=== PATIENT | male | born 1945 | race Caucasian/White ===

== ENCOUNTER 2020-11-28 17:15 | Observation (INO) | payer MEDICARE ==
--- NOTE | 2020-11-28 18:53 | CR ---
PROCEDURE INFORMATION: Exam: XR Chest, 1 View Exam date and time: 11/28/2020 6:44 PM Age: 75 years old Clinical indication: Cough and shortness of breath; Additional info: Chest pain TECHNIQUE: Imaging protocol: XR of the chest Views: 1 view. COMPARISON: CT Chest wo Cont 08/01/2020 9:40 AM FINDINGS: Lungs: The pulmonary vasculature is not engorged. There is mild prominence of the interstitial markings in both lungs similar to the prior CT. Pleural spaces: There are no pleural effusions present. Heart/Mediastinum: The heart is not enlarged. Bones/joints: Unremarkable Soft tissues: The frontal view of the chest is taken in lordotic positioning. IMPRESSION: 1. Chronic prominence of the interstitial markings similar to the prior study. 2. No acute abnormality.
[2020-11-28 18:56] LABS: ANION GAP 14.2 mEq/L (7-13); CHLORIDE,CL 100 mmol/L (98-107); SODIUM,NA 137 mmol/L (136-145)
--- NOTE | 2020-11-28 19:07 | EDM.PDOC ---
<Bella Quiroz - Last Filed: 11/28/20 19:08> ED HPI GENERAL MEDICAL PROBLEM - General Chief Complaint: Respiratory Problem Stated Complaint: FATIGUE,DIFFICULTY BREATHING, PULMINARY ISSUES Time Seen by Provider: 11/28/20 17:45 Source of Information: Reports: Patient, RN, RN Notes Reviewed History Limitations: Reports: No Limitations - History of Present Illness INITIAL COMMENTS - FREE TEXT/NARRATIVE: Patient is a 75-year-old male who presents to ER with complaint of shortness of breath. Began a few days ago. States this morning he had an anxiety attack and states his shortness of breath did increase throughout the day. Patient states he has been doctoring with Dr. Keenan regarding lung issues recently, does have a appointment with pulmonology set up. Patient admits to shortness of breath and cough with production, and increased production lately which is clear. Denies chest pains, fever, chills, nausea, vomiting, diarrhea. Patient states he is not on oxygen at home at baseline. Patient states he has not had Covid, was last tested 5 months ago. Patient states he was vaccinated for the first time 1 week ago. Onset: Today, Gradual - Related Data Allergies Allergy/AdvReac Type Severity Reaction Status Date / Time No Known Allergies Allergy Verified 11/28/20 21:27 Home Meds: Home Meds Aspirin 325 mg PO DAILY 11/28/20 [History] Budesonide/Formoterol Fumarate [Symbicort 80-4.5 MCG] 2 puff INH BID 11/28/20 [History] Fluticasone Propionate 1 spray NASBOTH DAILY 11/28/20 [History] Metoprolol Succinate [Toprol XL 50mg] 50 mg PO DAILY 11/28/20 [History] Montelukast [Singulair] 10 mg PO DAILY 11/28/20 [History] Simvastatin 20 mg PO BEDTIME 11/28/20 [History] metFORMIN HCl [Metformin HCl] 500 mg PO ACBREAKFAST 11/28/20 [History] Past Medical History Cardiovascular History: Reports: High Cholesterol Respiratory History: Reports: SOB Social & Family History - Tobacco Use Tobacco Use Status *Q: Never Tobacco User Second Hand Smoke Exposure: No ED ROS GENERAL - Review of Systems Review Of Systems: Comprehensive ROS is negative, except as noted in HPI. ED EXAM, GENERAL - Physical Exam Exam: See Below Exam Limited By: No Limitations General Appearance: Alert, WD/WN, Mild Distress Eye Exam: Bilateral Eye: EOMI, Normal Inspection Ears: Normal External Exam, Hearing Grossly Normal Nose: Normal Inspection Throat/Mouth: Normal Inspection, Normal Lips, Normal Teeth, Normal Gums, Normal Oropharynx, Normal Voice, No Airway Compromise Head: Atraumatic, Normocephalic Neck: Normal Inspection, Supple, Non-Tender, Full Range of Motion Respiratory/Chest: Decreased Breath Sounds, Crackles (throughout), Rales (throughout) Cardiovascular: Normal Peripheral Pulses, Regular Rate, Rhythm, No Edema, No Gallop, No JVD, No Murmur, No Rub Peripheral Pulses: 2+: Radial (L), Radial (R) GI/Abdominal: Normal Bowel Sounds, Soft, Non-Tender (Male) Exam: Deferred Rectal (Males) Exam: Deferred Back Exam: Normal Inspection, Full Range of Motion, NT Extremities: Normal Inspection, Normal Range of Motion, Non-Tender, Normal Capillary Refill, No Pedal Edema Neurological: Alert, Oriented, CN II-XII Intact, Normal Cognition, Normal Gait, Normal Reflexes, No Motor/Sensory Deficits Psychiatric: Normal Affect, Normal Mood Skin Exam: Warm, Dry, Intact, Normal Color, No Rash Lymphatic: No Adenopathy Course - Radiology Interpretation Free Text/Narrative:: Chest xray: PROCEDURE INFORMATION: Exam: XR Chest, 1 View Exam date and time: 11/28/2020 6:44 PM Age: 75 years old Clinical indication: Cough and shortness of breath; Additional info: Chest pain TECHNIQUE: Imaging protocol: XR of the chest Views: 1 view. COMPARISON: CT Chest wo Cont 08/01/2020 9:40 AM FINDINGS: Lungs: The pulmonary vasculature is not engorged. There is mild prominence of the interstitial markings in both lungs similar to the prior CT. Pleural spaces: There are no pleural effusions present. Heart/Mediastinum: The heart is not enlarged. Bones/joints: Unremarkable Soft tissues: The frontal view of the chest is taken in lordotic positioning. IMPRESSION: 1. Chronic prominence of the interstitial markings similar to the prior study. 2. No acute abnormality. Thank you for allowing us to participate in the care of your patient. Dictated and Authenticated by: Vladimir Liang MD 11/28/2020 6:53 PM Central Time ([place] & [place]) See rad report Departure - Departure Disposition: Refer to Observation Clinical Impression: Hypoxia Diabetes mellitus Qualifiers: Diabetes mellitus type: type 2 Diabetes mellitus manager intermediate insulin use: without usp use - Discharge Information Sepsis Event Note (ED) - Evaluation Sepsis Screening Result: No Definite Risk <Vera Taylor - Last Filed: 11/28/20 23:02> Course - Vital Signs Last Recorded V/S: Last Vital Signs Temp 97.1 F 11/28/20 17:17 Pulse 63 11/28/20 17:17 Resp 32 H 11/28/20 17:17 BP 121/65 11/28/20 17:17 Pulse Ox 76 L 11/28/20 17:17 - Orders/Labs/Meds Orders: Active Orders 24 hr Category Date Time Status CULTURE BLOOD [BC] Stat Lab 11/28/20 18:09 Received UA W/SHIRLEY RFLX IF INDICATED [URIN] Stat Lab 11/28/20 18:20 Ordered Blood Culture x2 Reflex Set [OM.PC] Stat Oth 11/28/20 18:19 Ordered Isolation [COMM] Routine Oth 11/28/20 18:20 Active Medication Orders Acetaminophen (Tylenol) 650 mg PO Q4H PRN PRN Reason: Pain (Mild 1-3)/fever Albuterol/Ipratropium (Duoneb 3.0-0.5 Mg/3 Ml) 3 ml NEB Q4H PRN PRN Reason: shortness of breath/wheezing Aspirin (Aspirin) 324 mg PO DAILY ROSA Docusate Sodium (Colace) 100 mg PO BID PRN PRN Reason: Constipation Fluticasone Propionate (Flonase) 0 gm NASBOTH DAILY ROSA Furosemide (Lasix) 40 mg IVPUSH Q12H ROSA Last Admin: 11/28/20 22:34 Dose: 40 mg Documented by: URIEL Guaifenesin (Robitussin) 100 mg PO Q6H PRN PRN Reason: Cough Last Admin: 11/28/20 22:35 Dose: 100 mg Documented by: URIEL Heparin Sodium (Porcine) (Heparin Sodium) 5,000 units SUBCUT Q12HR ROSA Magnesium Hydroxide (Milk Of Magnesia) 30 ml PO Q12H PRN PRN Reason: Constipation Metformin HCl (Glucophage) 500 mg PO ACBREAKFAST ROSA Methylprednisolone Sodium Succinate (Solu-Medrol) 40 mg IVPUSH Q8H [facility] Last Admin: 11/28/20 22:34 Dose: 40 mg Documented by: URIEL Metoprolol Succinate (Toprol Xl) 50 mg PO DAILY [facility] Mometasone Furoate/Formoterol Fumar (Dulera 100-5 Mcg) 2 puff IH BID [facility] Montelukast Sodium (Singulair) 10 mg PO DAILY [facility] Ondansetron HCl (Zofran) 4 mg IVPUSH Q6H PRN PRN Reason: Nausea/Vomiting Simvastatin (Zocor) 20 mg PO BEDTIME [facility] Last Admin: 11/28/20 22:34 Dose: 20 mg Documented by: URIEL Labs: Laboratory Tests 11/28/20 11/28/20 11/28/20 Range/Units 18:09 18:09 18:09 WBC 9.4 (5.0-10.0) 10^3/uL RBC 4.79 (4.6-6.2) 10^6/uL Hgb 15.9 (14.0-18.0) g/dL Hct 46.2 (40.0-54.0) % MCV 96.5 (80-100) fL MCH 33.2 (27.0-34.0) pg MCHC 34.4 (33.0-35.0) g/dL Plt Count 245 (150-450) 10^3/uL Neut % (Auto) 70.1 (42.2-75.2) % Lymph % (Auto) 17.0 L (20.5-50.1) % [place] % (Auto) 9.8 H (2-8) % Eos % (Auto) 2.7 (1.0-3.0) % Baso % (Auto) 0.4 (0.0-1.0) % PT 10.2 (9.0-12.0) SEC INR 1.1 (0.9-1.2) D-Dimer, Quantitative 455 H (0-400) ng/mL Sodium 137 (136-145) mmol/L Potassium 4.2 (3.5-5.1) mmol/L Chloride 100 (98-107) mmol/L Carbon Dioxide 27 (21-32) mmol/L Anion Gap 14.2 H (7-13) mEq/L BUN 14 (7-18) mg/dL Creatinine 1.02 (0.70-1.30) mg/dL Est Cr Clr Drug Dosing 66.60 mL/min Estimated GFR (MDRD) > 60 BUN/Creatinine Ratio 13.7 (No establ ref range) Glucose 99 (74-99) mg/dL Lactic Acid (0.4-2.0) mmol/L Calcium 8.8 (8.5-10.1) mg/dL Phosphorus (2.6-4.7) mg/dL Magnesium (1.8-2.4) mg/dL Total Bilirubin 1.3 H (0.2-1.0) mg/dL AST 20 (15-37) U/L ALT 28 (16-63) U/L Alkaline Phosphatase 79 (46-116) U/L Troponin I < 0.017 (0.000-0.056) ng/mL C-Reactive Protein 3.1 H (0.0-0.9) mg/dL B-Natriuretic Peptide 77 (0-100) pg/ml Total Protein 7.7 (6.4-8.2) g/dL Albumin 3.1 L (3.4-5.0) g/dL Globulin 4.6 Albumin/Globulin Ratio 0.67 Influenza Type A RNA (NEGATIVE) Influenza Type B RNA (NEGATIVE) SARS-CoV-2 RNA (CONI) (NEGATIVE) 11/28/20 11/28/20 11/28/20 Range/Units 18:09 18:09 18:39 WBC (5.0-10.0) 10^3/uL RBC (4.6-6.2) 10^6/uL Hgb (14.0-18.0) g/dL Hct (40.0-54.0) % MCV (80-100) fL MCH (27.0-34.0) pg MCHC (33.0-35.0) g/dL Plt Count (150-450) 10^3/uL Neut % (Auto) (42.2-75.2) % Lymph % (Auto) (20.5-50.1) % [place] % (Auto) (2-8) % Eos % (Auto) (1.0-3.0) % Baso % (Auto) (0.0-1.0) % PT (9.0-12.0) SEC INR (0.9-1.2) D-Dimer, Quantitative (0-400) ng/mL Sodium (136-145) mmol/L Potassium (3.5-5.1) mmol/L Chloride (98-107) mmol/L Carbon Dioxide (21-32) mmol/L Anion Gap (7-13) mEq/L BUN (7-18) mg/dL Creatinine (0.70-1.30) mg/dL Est Cr Clr Drug Dosing mL/min Estimated GFR (MDRD) BUN/Creatinine Ratio (No establ ref range) Glucose (74-99) mg/dL Lactic Acid 1.0 (0.4-2.0) mmol/L Calcium (8.5-10.1) mg/dL Phosphorus 3.6 (2.6-4.7) mg/dL Magnesium 2.1 (1.8-2.4) mg/dL Total Bilirubin (0.2-1.0) mg/dL AST (15-37) U/L ALT (16-63) U/L Alkaline Phosphatase (46-116) U/L Troponin I (0.000-0.056) ng/mL C-Reactive Protein (0.0-0.9) mg/dL B-Natriuretic Peptide (0-100) pg/ml Total Protein (6.4-8.2) g/dL Albumin (3.4-5.0) g/dL Globulin Albumin/Globulin Ratio Influenza Type A RNA Negative (NEGATIVE) Influenza Type B RNA Negative (NEGATIVE) SARS-CoV-2 RNA (CONI) Negative (NEGATIVE) Meds: Medications Generic Name Dose Route Start Last Admin Trade Name Freq PRN Reason Stop Dose Admin Acetaminophen 650 mg 11/28/20 21:32 Tylenol PO Q4H PRN Pain (Mild 1-3)/fever Albuterol/Ipratropium 3 ml 11/28/20 21:32 Duoneb 3.0-0.5 Mg/3 Ml NEB Q4H PRN shortness of breath/wheezing Aspirin 324 mg 11/29/20 09:00 Aspirin PO DAILY ROSA Docusate Sodium 100 mg 11/28/20 21:32 Colace PO BID PRN Constipation Fluticasone Propionate 0 gm 11/29/20 09:00 Flonase NASBOTH DAILY ROSA Furosemide 40 mg 11/28/20 21:45 11/28/20 22:34 Lasix IVPUSH 40 mg Q12H ROSA Administration Guaifenesin 100 mg 11/28/20 21:57 11/28/20 22:35 Robitussin PO 100 mg Q6H PRN Administration Cough Heparin Sodium (Porcine) 5,000 units 11/29/20 09:00 Heparin Sodium SUBCUT Q12HR ROSA Magnesium Hydroxide 30 ml 11/28/20 21:32 Milk Of Magnesia PO Q12H PRN Constipation Metformin HCl 500 mg 11/29/20 06:00 Glucophage PO ACBREAKFAST ROSA Methylprednisolone Sodium Succinate 40 mg 11/28/20 21:45 11/28/20 22:34 Solu-Medrol IVPUSH 40 mg Q8H RSOA Administration Metoprolol Succinate 50 mg 11/29/20 09:00 Toprol Xl PO DAILY ROSA Mometasone Furoate/Formoterol Fumar 2 puff 11/29/20 09:00 Dulera 100-5 Mcg IH BID ROSA Montelukast Sodium 10 mg 11/29/20 09:00 Singulair PO DAILY ROSA Ondansetron HCl 4 mg 11/28/20 21:32 Zofran IVPUSH Q6H PRN Nausea/Vomiting Simvastatin 20 mg 11/28/20 22:30 11/28/20 22:34 Zocor PO 20 mg BEDTIME ROSA Administration Discontinued Medications Generic Name Dose Route Start Last Admin Trade Name Freq PRN Reason Stop Dose Admin Azithromycin 500 mg/ Sodium 250 mls @ 250 mls/hr 11/28/20 21:45 11/28/20 22:35 Chloride IV 11/28/20 22:44 250 mls/hr BEDTIME ROSA Administration Iopamidol 100 ml 11/28/20 19:31 11/28/20 19:43 [id number] (76%) IVPUSH 11/28/20 19:32 100 ml ONETIME ONE Administration - Re-Assessments/Exams Free Text/Narrative Re-Assessment/Exam: 11/28/20 20:[address] Ott, agree to admit [facility] Departure - Departure Time of Disposition: 20:50 Condition: Fair - Discharge Information *PRESCRIPTION DRUG MONITORING PROGRAM REVIEWED*: No *COPY OF PRESCRIPTION DRUG MONITORING REPORT IN PATIENT JUANY: No Sepsis Event Note (ED) - Focused Exam Vital Signs: Vital Signs Temp Pulse Resp BP Pulse Ox 11/28/20 17:17 97.1 F 63 32 H 121/65 76 L
[2020-11-28 19:20] LABS: CORONAVIRUS COVID-19 NAA NEGATIVE (NEGATIVE)
[2020-11-28] MEDS ORDERED: Iopamidol 755 Mg/ML 100 ML Bottle IVPUSH ONE (19:31)
--- NOTE | 2020-11-28 20:30 | CT ---
PROCEDURE INFORMATION: Exam: CT Chest With Contrast; Diagnostic Exam date and time: 11/28/2020 8:06 PM Age: 75 years old Clinical indication: Other: Pe protocol d-dimer 455; Additional info: Increased SOB, decreased sats TECHNIQUE: Imaging protocol: Diagnostic computed tomography of the chest with contrast. Radiation optimization: All CT scans at this facility use at least one of these dose optimization techniques: automated exposure control; mA and/or kV adjustment per patient size (includes targeted exams where dose is matched to clinical indication); or iterative reconstruction. Contrast material: [id number]; Contrast volume: 84 ml; Contrast route: INTRAVENOUS (IV); COMPARISON: CT Chest wo Cont 08/01/2020 9:40 AM FINDINGS: Lungs: There is moderate bibasilar bronchiectasis. There are multiple peripheral small emphysematous spaces in a patchy distribution. These are more pronounced in the lung bases and are more pronounced than on the prior exam. Pleural spaces: There are no pleural effusions present. Heart: The heart is not enlarged. Mediastinal space: The trachea is normal. Pulmonary arteries: There is no evidence of filling defects within the pulmonary arterial circulation to suggest pulmonary embolism. Aorta: The aorta is normal. Lymph nodes: There are multiple mildly enlarged lymph nodes in the mediastinum. The largest is on the left adjacent to the left main pulmonary artery measuring about 1.6 cm in short axis. There is a large right hilar nodes/mass measuring about 2.6 x 2.0 in transverse and AP diameters. This is larger than the prior study. Bones/joints: Unremarkable for age Soft tissues: The extrathoracic soft tissues are normal. IMPRESSION: 1. No evidence of pulmonary embolism. 2. Enlarged right hilar lymphadenopathy. 3. Mediastinal lymphadenopathy. 4. Bilateral chronic interstitial lung disease.
[2020-11-28] MEDS ORDERED: Docusate Sodium 100 MG Cap PO PRN (21:32)
[2020-11-28] MEDS ORDERED: Acetaminophen 325 MG Tab PO PRN (21:32)
[2020-11-28] MEDS ORDERED: Magnesium Hydroxide 400 MG/5 ML Susp 30 ML Cup PO PRN (21:32)
[2020-11-28] MEDS ORDERED: Ondansetron 4 MG/2 ML SDV IVPUSH PRN (21:32)
[2020-11-28] MEDS ORDERED: Albuterol/Ipratropium 3.0-0.5 MG/3 ML Neb Soln NEB PRN (21:32)
--- NOTE | 2020-11-28 21:42 | PCM.HP ---
H&P History of Present Illness - General Date of Service: 11/28/20 Admit Problem/Dx: Admission Diagnosis/Problem Admission Diagnosis/Problem Hypoxia Source of Information: Patient History Limitations: Reports: No Limitations - History of Present Illness Initial Comments - Free Text/Narative: Desmond this 75-year-old male with past medical history significant for diabetes type 2, hypertension, hyperlipidemia, ? COPD/respiratory airway disease who presented to the ED for evaluation of increasing shortness of breath for the past 2 weeks which has gotten worse over the last 4 days. He reports dyspnea with exertion. He gets short of breath and tired with minimal activity. Patient reports this morning he had an anxiety attack and and made his shortness of breath worse. He denies cough, fever, chills. He denies wheezing. No chest pain. Denies leg swelling. Denies orthopnea, PND. Denies weight gain. He said he had pneumonia about 4 months ago and says that he is notes completely gotten back to his baseline. He has been doctoring with his PCP for his lung issues. He has a pending appointment with pulmonology coming up. Denies recent travel or ill contacts. No abdominal pain, nausea, vomiting. No diarrhea, hematochezia or melena. He received his first Covid vaccine a week ago. He denies tobacco abuse. And does occasional use of alcohol. In the ED vitals unremarkable. CT chest was negative. BNP slightly elevated. He was placed on 4 L of oxygen via nasal cannula. Admission requested for further management. Onset of Symptoms: Reports: Gradual Duration of Symptoms: Reports: Day(s): Location: Reports: Chest Quality: Reports: Ache Severity: Moderate Improves with: Reports: None Worsens with: Reports: None (As per HPI) - Related Data Allergies/Adverse Reactions: Allergies Allergy/AdvReac Type Severity Reaction Status Date / Time No Known Allergies Allergy Verified 11/28/20 21:27 Home Medications: Home Meds Aspirin 325 mg PO DAILY 11/28/20 [History] Budesonide/Formoterol Fumarate [Symbicort 80-4.5 MCG] 2 puff INH BID 11/28/20 [History] Fluticasone Propionate 1 spray NASBOTH DAILY 11/28/20 [History] Metoprolol Succinate [Toprol XL 50mg] 50 mg PO DAILY 11/28/20 [History] Montelukast [Singulair] 10 mg PO DAILY 11/28/20 [History] Simvastatin 20 mg PO BEDTIME 11/28/20 [History] metFORMIN HCl [Metformin HCl] 500 mg PO ACBREAKFAST 11/28/20 [History] Past Medical History Cardiovascular History: Reports: High Cholesterol, Hypertension Respiratory History: Reports: SOB Endocrine/Metabolic History: Reports: Diabetes, Type II, Other (See Below) Other Endocrine/Metabolic History: Diabetes Social & Family History - Tobacco Use Tobacco Use Status *Q: Never Tobacco User Second Hand Smoke Exposure: No - Caffeine Use Caffeine Use: Reports: Coffee - Recreational Drug Use Recreational Drug Use: No H&P Review of Systems - Review of Systems: Review Of Systems: See Below (As per hpi) General: Reports: No Symptoms HEENT: Reports: No Symptoms Pulmonary: Reports: Shortness of Breath Cardiovascular: Reports: No Symptoms Gastrointestinal: Reports: No Symptoms Genitourinary: Reports: No Symptoms Musculoskeletal: Reports: No Symptoms Skin: Reports: No Symptoms Psychiatric: Reports: No Symptoms Neurological: Reports: No Symptoms Hematologic/Lymphatic: Reports: No Symptoms Immunologic: Reports: No Symptoms Exam - Exam Exam: See Below (As per HPI) - Vital Signs Vital Signs: Last Vital Signs Temp 97.1 F 11/28/20 17:17 Pulse 63 11/28/20 17:17 Resp 32 H 11/28/20 17:17 BP 121/65 11/28/20 17:17 Pulse Ox 76 L 11/28/20 17:17 Weight: 237 lb 8 oz - Exam General: Alert, Oriented, 4 HEENT: PERRLA, Hearing Intact, Mucosa Moist & [place], Nares Patent, Normal Nasal Septum, Posterior Pharynx Clear, Conjunctiva Clear, EOMI, EACs Clear, TMs Clear Neck: Supple, Trachea Midline, 2 Lungs: Clear to Auscultation, Normal Respiratory Effort, Crackles, Rales, Rhonchi Cardiovascular: Regular Rate, Regular Rhythm GI/Abdominal Exam: Normal Bowel Sounds, Soft, Non-Tender, No Organomegaly, No Distention, No Abnormal Bruit, No Mass, Pelvis Stable (Male) Exam: No Hernia, Normal Inspection, Normal Prostate, Circumcised Rectal (Males) Exam: Normal Exam, Normal Rectal Tone, Prostate Normal Back Exam: Normal Inspection, Full Range of Motion, NT Extremities: Normal Inspection, Normal Range of Motion, Non-Tender, No Pedal Edema, Normal Capillary Refill Skin: Warm, Dry, Intact Neurological: Cranial Nerves Intact, Reflexes Equal Bilateral Neuro Extensive - Mental Status: Alert, Oriented x3, Normal Mood/Affect, Normal Cognition Neuro Extensive - Motor, Sensory, Reflexes: CN II-XII Intact, Normal Gait, Normal Reflexes Psychiatric: Alert, Normal Affect, Normal Mood - Patient Data Lab Results Last 24 hrs: Laboratory Results - last 24 hr 11/28/20 11/28/20 11/28/20 Range/Units 18:09 18:09 18:09 WBC 9.4 (5.0-10.0) 10^3/uL RBC 4.79 (4.6-6.2) 10^6/uL Hgb 15.9 (14.0-18.0) g/dL Hct 46.2 (40.0-54.0) % MCV 96.5 (80-100) fL MCH 33.2 (27.0-34.0) pg MCHC 34.4 (33.0-35.0) g/dL Plt Count 245 (150-450) 10^3/uL Neut % (Auto) 70.1 (42.2-75.2) % Lymph % (Auto) 17.0 L (20.5-50.1) % Reeves % (Auto) 9.8 H (2-8) % Eos % (Auto) 2.7 (1.0-3.0) % Baso % (Auto) 0.4 (0.0-1.0) % PT 10.2 (9.0-12.0) SEC INR 1.1 (0.9-1.2) D-Dimer, Quantitative 455 H (0-400) ng/mL Sodium 137 (136-145) mmol/L Potassium 4.2 (3.5-5.1) mmol/L Chloride 100 (98-107) mmol/L Carbon Dioxide 27 (21-32) mmol/L Anion Gap 14.2 H (7-13) mEq/L BUN 14 (7-18) mg/dL Creatinine 1.02 (0.70-1.30) mg/dL Est Cr Clr Drug Dosing 66.60 mL/min Estimated GFR (MDRD) > 60 BUN/Creatinine Ratio 13.7 (No establ ref range) Glucose 99 (74-99) mg/dL Lactic Acid (0.4-2.0) mmol/L Calcium 8.8 (8.5-10.1) mg/dL Total Bilirubin 1.3 H (0.2-1.0) mg/dL AST 20 (15-37) U/L ALT 28 (16-63) U/L Alkaline Phosphatase 79 (46-116) U/L Troponin I < 0.017 (0.000-0.056) ng/mL C-Reactive Protein 3.1 H (0.0-0.9) mg/dL B-Natriuretic Peptide 77 (0-100) pg/ml Total Protein 7.7 (6.4-8.2) g/dL Albumin 3.1 L (3.4-5.0) g/dL Globulin 4.6 Albumin/Globulin Ratio 0.67 Influenza Type A RNA (NEGATIVE) Influenza Type B RNA (NEGATIVE) SARS-CoV-2 RNA (CONI) (NEGATIVE) 11/28/20 11/28/20 Range/Units 18:09 18:39 WBC (5.0-10.0) 10^3/uL RBC (4.6-6.2) 10^6/uL Hgb (14.0-18.0) g/dL Hct (40.0-54.0) % MCV (80-100) fL MCH (27.0-34.0) pg MCHC (33.0-35.0) g/dL Plt Count (150-450) 10^3/uL Neut % (Auto) (42.2-75.2) % Lymph % (Auto) (20.5-50.1) % Reeves % (Auto) (2-8) % Eos % (Auto) (1.0-3.0) % Baso % (Auto) (0.0-1.0) % PT (9.0-12.0) SEC INR (0.9-1.2) D-Dimer, Quantitative (0-400) ng/mL Sodium (136-145) mmol/L Potassium (3.5-5.1) mmol/L Chloride (98-107) mmol/L Carbon Dioxide (21-32) mmol/L Anion Gap (7-13) mEq/L BUN (7-18) mg/dL Creatinine (0.70-1.30) mg/dL Est Cr Clr Drug Dosing mL/min Estimated GFR (MDRD) BUN/Creatinine Ratio (No establ ref range) Glucose (74-99) mg/dL Lactic Acid 1.0 (0.4-2.0) mmol/L Calcium (8.5-10.1) mg/dL Total Bilirubin (0.2-1.0) mg/dL AST (15-37) U/L ALT (16-63) U/L Alkaline Phosphatase (46-116) U/L Troponin I (0.000-0.056) ng/mL C-Reactive Protein (0.0-0.9) mg/dL B-Natriuretic Peptide (0-100) pg/ml Total Protein (6.4-8.2) g/dL Albumin (3.4-5.0) g/dL Globulin Albumin/Globulin Ratio Influenza Type A RNA Negative (NEGATIVE) Influenza Type B RNA Negative (NEGATIVE) SARS-CoV-2 RNA (CONI) Negative (NEGATIVE) Result Diagrams: 11/29/20 06:00 11/28/20 18:09 - Problem List (1) Acute CHF SNOMED Code(s): 55532542 ICD Code: I50.9 - HEART FAILURE, UNSPECIFIED Status: Acute Current Visit: Yes (2) Acute respiratory failure with hypoxia SNOMED Code(s): 39866410, 414801262 ICD Code: J96.01 - ACUTE RESPIRATORY FAILURE WITH HYPOXIA Status: Acute Current Visit: Yes (3) Acute respiratory disease SNOMED Code(s): 925297741 ICD Code: J06.9 - ACUTE UPPER RESPIRATORY INFECTION, UNSPECIFIED Status: Acute Current Visit: Yes Problem List Initiated/Reviewed/Updated: Yes Orders Last 24hrs: Active Orders 24 hr Category Date Time Status Admission Diagnosis [ADT] Stat ADT 11/28/20 20:48 Ordered Patient Status [ADT] Routine ADT 11/28/20 20:48 Active Ambulate [RC] ASDIRECTED Care 11/28/20 21:32 Ordered Blood Glucose Check, Bedside [RC] WITHMEALSANDBED Care 11/28/20 21:32 Ordered Intake and Output [RC] QSHIFT Care 11/28/20 21:33 Ordered Oxygen Therapy [RC] PRN Care 11/28/20 21:32 Ordered Pulse Oximetry [RC] PRN Care 11/28/20 21:33 Ordered RT Aerosol Therapy [RC] ASDIRECTED Care 11/28/20 21:35 Ordered VTE/DVT Education [RC] PER UNIT ROUTINE Care 11/28/20 21:32 Ordered Vital Signs [RC] Q4H Care 11/28/20 21:32 Ordered PT Evaluation and Treatment [CONS] Routine Cons 11/28/20 21:32 Ordered Regular Diet [DIET] Diet 11/28/20 Breakfast Ordered CBC W/O DIFF,HEMOGRAM [HEME] Routine Lab 11/29/20 07:00 Ordered CULTURE BLOOD [BC] Stat Lab 11/28/20 18:09 Received MAGNESIUM [CHEM] Routine Lab 11/28/20 21:32 Ordered PHOSPHORUS [CHEM] Routine Lab 11/28/20 21:32 Ordered Acetaminophen [TylenoL] Med 11/28/20 21:32 Ordered 650 mg PO Q4H PRN Albuterol/Ipratropium [DuoNeb 3.0-0.5 MG/3 ML] Med 11/28/20 21:32 Ordered 3 ml NEB Q4H PRN Azithromycin [Zithromax] 500 mg Med 11/28/20 21:45 Ordered Sodium Chloride 0.9% [Normal Saline (AdvBag)] 250 ml IV Q24H Docusate Sodium [Colace] Med 11/28/20 21:32 Ordered 100 mg PO BID PRN Furosemide [Lasix] Med 11/28/20 21:45 Ordered 40 mg IVPUSH Q12H Heparin Sodium Med 11/29/20 09:00 Ordered 5,000 units SUBCUT Q12HR Magnesium Hydroxide [Milk of Magnesia] Med 11/28/20 21:32 Ordered 30 ml PO Q12H PRN Ondansetron [Zofran] Med 11/28/20 21:32 Ordered 4 mg IVPUSH Q6H PRN methylPREDNISolone Sod Succ [Solu-MEDROL] Med 11/28/20 21:45 Ordered 40 mg IVPUSH Q8H Blood Culture x2 Reflex Set [OM.PC] Stat Oth 11/28/20 18:19 Ordered Isolation [COMM] Routine Oth 11/28/20 18:20 Active Resuscitation Status Routine Resus Stat 11/28/20 21:32 Ordered Medication Orders Acetaminophen (Tylenol) 650 mg PO Q4H PRN PRN Reason: Pain (Mild 1-3)/fever Albuterol/Ipratropium (Duoneb 3.0-0.5 Mg/3 Ml) 3 ml NEB Q4H PRN PRN Reason: shortness of breath/wheezing Docusate Sodium (Colace) 100 mg PO BID PRN PRN Reason: Constipation Heparin Sodium (Porcine) (Heparin Sodium) 5,000 units SUBCUT Q12HR ROSA Azithromycin 500 mg/ Sodium (Chloride) 250 mls @ 250 mls/hr IV Q24H ROSA Stop: 11/28/20 22:44 Magnesium Hydroxide (Milk Of Magnesia) 30 ml PO Q12H PRN PRN Reason: Constipation Methylprednisolone Sodium Succinate (Solu-Medrol) 40 mg IVPUSH Q8H ROSA Ondansetron HCl (Zofran) 4 mg IVPUSH Q6H PRN PRN Reason: Nausea/Vomiting Assessment/Plan Comment:: #Acute respiratory failure with hypoxia Differentials include but to limited to acute respiratory airway disease, acute CHF Patient has no formal diagnosis of COPD. He has appointment with pulmonology coming up for lung function test Admit to medical floor Duo-Nebs q4h Solumedrol Azithromycin IV lasix Echo Daily weight Fluid restriction Continue supplemental oxygen and wean off as able Continue supplemental oxygen and wean off as able #Hypertension BP within acceptable limits Continue home dose of metoprolol Monitor BP closely #Type 2 diabetes Fairly controlled Patient on Metformin. Continue SSI for optimal glycemic control Accu-Cheks Hypoglycemic protocol #Hyperlipidemia Continue home statin #Diet Consistent carb diet #CODE STATUS Discussion with patient and he prefers to remain full code at this time.
[2020-11-28] MEDS ORDERED: Azithromycin 500 MG in Sodium Chloride 0.9% 250 ML IV SCH (21:45)
[2020-11-28] MEDS ORDERED: guaiFENesin 100 MG/5 ML Soln 5 ML UD Cup PO PRN (21:57)
[2020-11-28] MEDS: methylPREDNISolone Sodium Succinate 40 MG/1 ML SDV IVPUSH SCH (22:34)
[2020-11-28] MEDS: Simvastatin 10 MG Tab PO SCH (22:34)
[2020-11-28] MEDS: Furosemide 40 MG/4 ML VIAL IVPUSH SCH (22:34)
[2020-11-29] MEDS ORDERED: metFORMIN 500 MG Tab PO SCH ×2 (06:00→08:00)
[2020-11-29] MEDS: methylPREDNISolone Sodium Succinate 40 MG/1 ML SDV IVPUSH SCH ×3 (06:31→20:55)
[2020-11-29] MEDS: Montelukast 10 MG Tab PO SCH (08:21)
[2020-11-29] MEDS: Metoprolol Succinate 50 MG Tab.ER PO SCH (08:22)
[2020-11-29] MEDS: Aspirin 81 MG Tab.Chew PO SCH (08:22)
[2020-11-29] MEDS: Heparin Sodium 5,000 Units/ML Vial SUBCUT SCH ×2 (08:25→20:52)
[2020-11-29] MEDS: Fluticasone Propionate Nasal Spray 16 GM Bottle NASBOTH SCH (08:26)
[2020-11-29] MEDS: Formoterol/Mometasone 100-5 MCG 8.8 GM Inhaler IH SCH ×2 (08:28→21:00)
[2020-11-29] MEDS: Furosemide 40 MG/4 ML VIAL IVPUSH SCH ×2 (09:23→20:56)
--- NOTE | 2020-11-29 11:01 | PCM.DCSUM1 ---
Discharge Summary - Hospital Course Free Text/Narrative:: Desmond this 75-year-old male with past medical history significant for diabetes type 2, hypertension, hyperlipidemia, ? COPD/respiratory airway disease who presented to the ED for evaluation of increasing shortness of breath for the past 2 weeks which has gotten worse over the last 4 days. He was admitted for possible acute CHF versus acute respiratory airway disease. CT chest was negative. He received IV Lasix, breathing treatment. He required supplemental oxygen 4 L via nasal cannula. He responded to treatment. Symptoms improved. Echo was done. Reports pending. His overall condition improved. Patient was however unable to be weaned off oxygen. He is under walking desat yesterday and he will require 3 L at rest and 5 to 6 L with activity. He was discharged in stable condition with plan to follow-up with PCP. He has appointment with pulm onology coming up in December. He was advised to keep appointment. Diagnosis: Stroke: No - Discharge Data Discharge Date: 11/30/20 Discharge Disposition: Home, Self-Care 01 Condition: Stable - Referral to Home Health Primary Care Physician: Steve Rivera MD - Discharge Diagnosis/Problem(s) (1) Acute CHF SNOMED Code(s): 40756647 ICD Code: I50.9 - HEART FAILURE, UNSPECIFIED Status: Acute Current Visit: Yes (2) Acute respiratory failure with hypoxia SNOMED Code(s): 83893279, 846260589 ICD Code: J96.01 - ACUTE RESPIRATORY FAILURE WITH HYPOXIA Status: Acute Current Visit: Yes (3) Acute respiratory disease SNOMED Code(s): 421599589 ICD Code: J06.9 - ACUTE UPPER RESPIRATORY INFECTION, UNSPECIFIED Status: Acute Current Visit: Yes - Patient Summary/Data Consults: Consultations 11/28/20 21:32 PT Evaluation and Treatment [CONS] Routine - Patient Instructions Diet: Heart Healthy Diet Fluid Restriction: 1500 mL Activity: As Tolerated Driving: May Drive Today Showering/Bathing: May Shower Notify Provider of: Fever, Nausea and/or Vomiting - Discharge Plan *PRESCRIPTION DRUG MONITORING PROGRAM REVIEWED*: No *COPY OF PRESCRIPTION DRUG MONITORING REPORT IN PATIENT JUANY: No Prescriptions/Med Rec: Azithromycin 250 mg PO DAILY #4 tablet Furosemide [Lasix] 40 mg PO Q12H 1 Days #60 tablet predniSONE [Prednisone] 20 mg PO DAILY #5 tablet guaiFENesin [Robitussin] 100 mg PO Q6H PRN #1 cup PRN Reason: Cough Home Medications: Home Meds Aspirin 325 mg PO DAILY 11/28/20 [History] Budesonide/Formoterol Fumarate [Symbicort 80-4.5 MCG] 2 puff INH BID 11/28/20 [History] Fluticasone Propionate 1 spray NASBOTH DAILY 11/28/20 [History] Metoprolol Succinate [Toprol XL 50mg] 50 mg PO DAILY 11/28/20 [History] Montelukast [Singulair] 10 mg PO DAILY 11/28/20 [History] Simvastatin 20 mg PO BEDTIME 11/28/20 [History] metFORMIN HCl [Metformin HCl] 500 mg PO ACBREAKFAST 11/28/20 [History] Azithromycin 250 mg PO DAILY #4 tablet 11/29/20 [Rx] Furosemide [Lasix] 40 mg PO Q12H 1 Days #60 tablet 11/29/20 [Rx] guaiFENesin [Robitussin] 100 mg PO Q6H PRN #1 cup 11/29/20 [Rx] predniSONE [Prednisone] 20 mg PO DAILY #5 tablet 11/29/20 [Rx] Oxygen Therapy Mode: Room Air Patient Handouts: Hypoxia, Furosemide Oral Tablets, Heart Failure, Self Care, [id number], Guaifenesin oral solution and syrup, Azithromycin tablets, Living With Heart Failure, Prednisone tablets Referrals: Steve Rivera MD [Primary Care Provider] - - Discharge Summary/Plan Comment DC Time >30 min.: Yes - General Info Date of Service: 11/30/20 Admission Dx/Problem (Free Text: Admission Diagnosis/Problem Admission Diagnosis/Problem Hypoxia Functional Status: Reports: Pain Controlled - Review of Systems General: Reports: No Symptoms HEENT: Reports: No Symptoms Pulmonary: Reports: No Symptoms Cardiovascular: Reports: No Symptoms Gastrointestinal: Reports: No Symptoms Genitourinary: Reports: No Symptoms Musculoskeletal: Reports: No Symptoms Skin: Reports: No Symptoms Neurological: Reports: No Symptoms Psychiatric: Reports: No Symptoms - Patient Data Vitals - Most Recent: Last Vital Signs Temp 97.9 F 11/29/20 08:00 Pulse 66 11/29/20 08:22 Resp 20 11/29/20 08:00 BP 112/68 11/29/20 08:22 Pulse Ox 97 11/29/20 08:00 Weight - Most Recent: 237 lb 8 oz I&O - Last 24 hours: Intake & Output 11/28/20 11/29/20 11/29/20 22:59 06:59 14:59 Output Total 2350 Balance -2350 Lab Results - Last 24 hrs: Laboratory Results - last 24 hr 11/28/20 11/28/20 11/28/20 Range/Units 18:09 18:09 18:09 WBC 9.4 (5.0-10.0) 10^3/uL RBC 4.79 (4.6-6.2) 10^6/uL Hgb 15.9 (14.0-18.0) g/dL Hct 46.2 (40.0-54.0) % MCV 96.5 (80-100) fL MCH 33.2 (27.0-34.0) pg MCHC 34.4 (33.0-35.0) g/dL Plt Count 245 (150-450) 10^3/uL Neut % (Auto) 70.1 (42.2-75.2) % Lymph % (Auto) 17.0 L (20.5-50.1) % [place] % (Auto) 9.8 H (2-8) % Eos % (Auto) 2.7 (1.0-3.0) % Baso % (Auto) 0.4 (0.0-1.0) % PT 10.2 (9.0-12.0) SEC INR 1.1 (0.9-1.2) D-Dimer, Quantitative 455 H (0-400) ng/mL Sodium 137 (136-145) mmol/L Potassium 4.2 (3.5-5.1) mmol/L Chloride 100 (98-107) mmol/L Carbon Dioxide 27 (21-32) mmol/L Anion Gap 14.2 H (7-13) mEq/L BUN 14 (7-18) mg/dL Creatinine 1.02 (0.70-1.30) mg/dL Est Cr Clr Drug Dosing 66.60 mL/min Estimated GFR (MDRD) > 60 BUN/Creatinine Ratio 13.7 (No establ ref range) Glucose 99 (74-99) mg/dL POC Glucose (83-110) mg/dl Lactic Acid (0.4-2.0) mmol/L Calcium 8.8 (8.5-10.1) mg/dL Phosphorus (2.6-4.7) mg/dL Magnesium (1.8-2.4) mg/dL Total Bilirubin 1.3 H (0.2-1.0) mg/dL AST 20 (15-37) U/L ALT 28 (16-63) U/L Alkaline Phosphatase 79 (46-116) U/L Troponin I < 0.017 (0.000-0.056) ng/mL C-Reactive Protein 3.1 H (0.0-0.9) mg/dL B-Natriuretic Peptide 77 (0-100) pg/ml Total Protein 7.7 (6.4-8.2) g/dL Albumin 3.1 L (3.4-5.0) g/dL Globulin 4.6 Albumin/Globulin Ratio 0.67 Urine Color (YELLOW) Urine Appearance (CLEAR) Urine pH (5.0-9.0) Ur Specific [place] (1.005-1.030) Urine Protein (NEGATIVE) Urine Glucose (UA) (NEGATIVE) Urine Ketones (NEGATIVE) Urine Occult Blood (NEGATIVE) Urine Nitrite (NEGATIVE) Urine Bilirubin (NEGATIVE) Urine Urobilinogen (0.2-1.0) mg/dL Ur Leukocyte Esterase (NEGATIVE) Influenza Type A RNA (NEGATIVE) Influenza Type B RNA (NEGATIVE) SARS-CoV-2 RNA (CONI) (NEGATIVE) 11/28/20 11/28/20 11/28/20 Range/Units 18:09 18:09 18:39 WBC (5.0-10.0) 10^3/uL RBC (4.6-6.2) 10^6/uL Hgb (14.0-18.0) g/dL Hct (40.0-54.0) % MCV (80-100) fL MCH (27.0-34.0) pg MCHC (33.0-35.0) g/dL Plt Count (150-450) 10^3/uL Neut % (Auto) (42.2-75.2) % Lymph % (Auto) (20.5-50.1) % Churchill % (Auto) (2-8) % Eos % (Auto) (1.0-3.0) % Baso % (Auto) (0.0-1.0) % PT (9.0-12.0) SEC INR (0.9-1.2) D-Dimer, Quantitative (0-400) ng/mL Sodium (136-145) mmol/L Potassium (3.5-5.1) mmol/L Chloride (98-107) mmol/L Carbon Dioxide (21-32) mmol/L Anion Gap (7-13) mEq/L BUN (7-18) mg/dL Creatinine (0.70-1.30) mg/dL Est Cr Clr Drug Dosing mL/min Estimated GFR (MDRD) BUN/Creatinine Ratio (No establ ref range) Glucose (74-99) mg/dL POC Glucose (83-110) mg/dl Lactic Acid 1.0 (0.4-2.0) mmol/L Calcium (8.5-10.1) mg/dL Phosphorus 3.6 (2.6-4.7) mg/dL Magnesium 2.1 (1.8-2.4) mg/dL Total Bilirubin (0.2-1.0) mg/dL AST (15-37) U/L ALT (16-63) U/L Alkaline Phosphatase (46-116) U/L Troponin I (0.000-0.056) ng/mL C-Reactive Protein (0.0-0.9) mg/dL B-Natriuretic Peptide (0-100) pg/ml Total Protein (6.4-8.2) g/dL Albumin (3.4-5.0) g/dL Globulin Albumin/Globulin Ratio Urine Color (YELLOW) Urine Appearance (CLEAR) Urine pH (5.0-9.0) Ur Specific [place] (1.005-1.030) Urine Protein (NEGATIVE) Urine Glucose (UA) (NEGATIVE) Urine Ketones (NEGATIVE) Urine Occult Blood (NEGATIVE) Urine Nitrite (NEGATIVE) Urine Bilirubin (NEGATIVE) Urine Urobilinogen (0.2-1.0) mg/dL Ur Leukocyte Esterase (NEGATIVE) Influenza Type A RNA Negative (NEGATIVE) Influenza Type B RNA Negative (NEGATIVE) SARS-CoV-2 RNA (CONI) Negative (NEGATIVE) 11/29/20 11/29/20 11/29/20 Range/Units 00:57 06:00 07:39 WBC 7.6 (5.0-10.0) 10^3/uL RBC 4.97 (4.6-6.2) 10^6/uL Hgb 16.5 (14.0-18.0) g/dL Hct 48.8 (40.0-54.0) % MCV 98.2 (80-100) fL MCH 33.2 (27.0-34.0) pg MCHC 33.8 (33.0-35.0) g/dL Plt Count 239 (150-450) 10^3/uL Neut % (Auto) (42.2-75.2) % Lymph % (Auto) (20.5-50.1) % Churchill % (Auto) (2-8) % Eos % (Auto) (1.0-3.0) % Baso % (Auto) (0.0-1.0) % PT (9.0-12.0) SEC INR (0.9-1.2) D-Dimer, Quantitative (0-400) ng/mL Sodium (136-145) mmol/L Potassium (3.5-5.1) mmol/L Chloride (98-107) mmol/L Carbon Dioxide (21-32) mmol/L Anion Gap (7-13) mEq/L BUN (7-18) mg/dL Creatinine (0.70-1.30) mg/dL Est Cr Clr Drug Dosing mL/min Estimated GFR (MDRD) BUN/Creatinine Ratio (No establ ref range) Glucose (74-99) mg/dL POC Glucose 146 H (83-110) mg/dl Lactic Acid (0.4-2.0) mmol/L Calcium (8.5-10.1) mg/dL Phosphorus (2.6-4.7) mg/dL Magnesium (1.8-2.4) mg/dL Total Bilirubin (0.2-1.0) mg/dL AST (15-37) U/L ALT (16-63) U/L Alkaline Phosphatase (46-116) U/L Troponin I (0.000-0.056) ng/mL C-Reactive Protein (0.0-0.9) mg/dL B-Natriuretic Peptide (0-100) pg/ml Total Protein (6.4-8.2) g/dL Albumin (3.4-5.0) g/dL Globulin Albumin/Globulin Ratio Urine Color Yellow (YELLOW) Urine Appearance Clear (CLEAR) Urine pH 5.5 (5.0-9.0) Ur Specific [place] 1.015 (1.005-1.030) Urine Protein Negative (NEGATIVE) Urine Glucose (UA) Negative (NEGATIVE) Urine Ketones Negative (NEGATIVE) Urine Occult Blood Negative (NEGATIVE) Urine Nitrite Negative (NEGATIVE) Urine Bilirubin Negative (NEGATIVE) Urine Urobilinogen 0.2 (0.2-1.0) mg/dL Ur Leukocyte Esterase Negative (NEGATIVE) Influenza Type A RNA (NEGATIVE) Influenza Type B RNA (NEGATIVE) SARS-CoV-2 RNA (CONI) (NEGATIVE) Med Orders - Current: Current Medications Acetaminophen (Tylenol) 650 mg PO Q4H PRN PRN Reason: Pain (Mild 1-3)/fever Albuterol/Ipratropium (Duoneb 3.0-0.5 Mg/3 Ml) 3 ml NEB Q4H PRN PRN Reason: shortness of breath/wheezing Aspirin (Aspirin) 324 mg PO DAILY [facility] Last Admin: 11/29/20 08:22 Dose: 324 mg Documented by: Docusate Sodium (Colace) 100 mg PO BID PRN PRN Reason: Constipation Fluticasone Propionate (Flonase) 0 gm NASBOTH DAILY [facility] Last Admin: 11/29/20 08:26 Dose: 1 spray Documented by: Furosemide (Lasix) 40 mg IVPUSH Q12H [facility] Last Admin: 11/29/20 09:23 Dose: 40 mg Documented by: Guaifenesin (Robitussin) 100 mg PO Q6H PRN PRN Reason: Cough Last Admin: 11/28/20 22:35 Dose: 100 mg Documented by: Heparin Sodium (Porcine) (Heparin Sodium) 5,000 units SUBCUT Q12HR [facility] Last Admin: 11/29/20 08:25 Dose: 5,000 units Documented by: Magnesium Hydroxide (Milk Of Magnesia) 30 ml PO Q12H PRN PRN Reason: Constipation Metformin HCl (Glucophage) 500 mg PO DAILY@0800 [facility] Last Admin: 11/29/20 08:22 Dose: 500 mg Documented by: Methylprednisolone Sodium Succinate (Solu-Medrol) 40 mg IVPUSH Q8H [facility] Last Admin: 11/29/20 06:31 Dose: 40 mg Documented by: Metoprolol Succinate (Toprol Xl) 50 mg PO DAILY [facility] Last Admin: 11/29/20 08:22 Dose: 50 mg Documented by: Mometasone Furoate/Formoterol Fumar (Dulera 100-5 Mcg) 2 puff IH BID [facility] Last Admin: 11/29/20 08:28 Dose: 2 puff Documented by: Montelukast Sodium (Singulair) 10 mg PO DAILY [facility] Last Admin: 11/29/20 08:21 Dose: 10 mg Documented by: Ondansetron HCl (Zofran) 4 mg IVPUSH Q6H PRN PRN Reason: Nausea/Vomiting Simvastatin (Zocor) 20 mg PO BEDTIME [facility] Last Admin: 11/28/20 22:34 Dose: 20 mg Documented by: Discontinued Medications Azithromycin 500 mg/ Sodium (Chloride) 250 mls @ 250 mls/hr IV BEDTIME [facility] Stop: 11/28/20 22:44 Last Infusion: 11/29/20 00:11 Dose: Infused Documented by: Iopamidol ([id number] (76%)) 100 ml IVPUSH ONETIME ONE Stop: 11/28/20 19:32 Last Admin: 11/28/20 19:43 Dose: 100 ml Documented by: Metformin HCl (Glucophage) 500 mg PO ACBREAKFAST ROSA - Exam General: Reports: Alert, Oriented HEENT: Reports: Pupils Equal, Pupils Reactive, EOMI, Mucous Membr. Moist/[place] Neck: Reports: Supple Lungs: Reports: Clear to Auscultation, Normal Respiratory Effort Cardiovascular: Reports: Regular Rate, Regular Rhythm GI/Abdominal Exam: Normal Bowel Sounds, Soft, Non-Tender, No Organomegaly, No Distention, No Abnormal Bruit, No Mass, Pelvis Stable (Male) Exam: No Hernia, Normal Inspection, Normal Prostate, Circumcised Rectal (Males) Exam: Normal Exam, Normal Rectal Tone, Prostate Normal Back Exam: Reports: Normal Inspection, Full Range of Motion Extremities: Normal Inspection, Normal Range of Motion, Non-Tender, No Pedal Edema, Normal Capillary Refill Skin: Reports: Warm, Dry, Intact Wound/Incisions: Reports: Healing Well Neurological: Reports: No New Focal Deficit Psy/Mental Status: Reports: Alert, Normal Affect, Normal Mood
--- NOTE | 2020-11-29 13:38 | PCM.PN ---
- General Info Date of Service: 11/29/20 Admission Dx/Problem (Free Text): Admission Diagnosis/Problem Admission Diagnosis/Problem Hypoxia Subjective Update: Desmond this 75-year-old male with past medical history significant for diabetes type 2, hypertension, hyperlipidemia, ? COPD/respiratory airway disease who presented to the ED for evaluation of increasing shortness of breath for the past 2 weeks which has gotten worse over the last 4 days. He was admitted for possible acute CHF versus acute respiratory airway disease. CT chest was negative. He was started on IV diuretics and, nebs and Solu-Medrol. Patient doing okay today. On 4 L via nasal this morning decrease down to 2 L. He is diuresing well. Offers no new complaints. Functional Status: Reports: Pain Controlled - Review of Systems General: Reports: No Symptoms HEENT: Reports: No Symptoms Pulmonary: Reports: No Symptoms Cardiovascular: Reports: No Symptoms Gastrointestinal: Reports: No Symptoms Genitourinary: Reports: No Symptoms Musculoskeletal: Reports: No Symptoms Skin: Reports: No Symptoms Neurological: Reports: No Symptoms Psychiatric: Reports: No Symptoms - Patient Data Vitals - Most Recent: Last Vital Signs Temp 97.4 F 11/29/20 12:00 Pulse 64 11/29/20 12:46 Resp 20 11/29/20 12:00 BP 117/73 11/29/20 12:00 Pulse Ox 92 L 11/29/20 12:46 Weight - Most Recent: 237 lb 8 oz I&O - Last 24 Hours: Intake & Output 11/28/20 11/29/20 11/29/20 22:59 06:59 14:59 Intake Total 710 Output Total 2350 Balance -2350 710 Lab Results Last 24 Hours: Laboratory Results - last 24 hr 11/28/20 11/28/20 11/28/20 Range/Units 18:09 18:09 18:09 WBC 9.4 (5.0-10.0) 10^3/uL RBC 4.79 (4.6-6.2) 10^6/uL Hgb 15.9 (14.0-18.0) g/dL Hct 46.2 (40.0-54.0) % MCV 96.5 (80-100) fL MCH 33.2 (27.0-34.0) pg MCHC 34.4 (33.0-35.0) g/dL Plt Count 245 (150-450) 10^3/uL Neut % (Auto) 70.1 (42.2-75.2) % Lymph % (Auto) 17.0 L (20.5-50.1) % [place] % (Auto) 9.8 H (2-8) % Eos % (Auto) 2.7 (1.0-3.0) % Baso % (Auto) 0.4 (0.0-1.0) % PT 10.2 (9.0-12.0) SEC INR 1.1 (0.9-1.2) D-Dimer, Quantitative 455 H (0-400) ng/mL Sodium 137 (136-145) mmol/L Potassium 4.2 (3.5-5.1) mmol/L Chloride 100 (98-107) mmol/L Carbon Dioxide 27 (21-32) mmol/L Anion Gap 14.2 H (7-13) mEq/L BUN 14 (7-18) mg/dL Creatinine 1.02 (0.70-1.30) mg/dL Est Cr Clr Drug Dosing 66.60 mL/min Estimated GFR (MDRD) > 60 BUN/Creatinine Ratio 13.7 (No establ ref range) Glucose 99 (74-99) mg/dL POC Glucose (83-110) mg/dl Lactic Acid (0.4-2.0) mmol/L Calcium 8.8 (8.5-10.1) mg/dL Phosphorus (2.6-4.7) mg/dL Magnesium (1.8-2.4) mg/dL Total Bilirubin 1.3 H (0.2-1.0) mg/dL AST 20 (15-37) U/L ALT 28 (16-63) U/L Alkaline Phosphatase 79 (46-116) U/L Troponin I < 0.017 (0.000-0.056) ng/mL C-Reactive Protein 3.1 H (0.0-0.9) mg/dL B-Natriuretic Peptide 77 (0-100) pg/ml Total Protein 7.7 (6.4-8.2) g/dL Albumin 3.1 L (3.4-5.0) g/dL Globulin 4.6 Albumin/Globulin Ratio 0.67 Urine Color (YELLOW) Urine Appearance (CLEAR) Urine pH (5.0-9.0) Ur Specific [place] (1.005-1.030) Urine Protein (NEGATIVE) Urine Glucose (UA) (NEGATIVE) Urine Ketones (NEGATIVE) Urine Occult Blood (NEGATIVE) Urine Nitrite (NEGATIVE) Urine Bilirubin (NEGATIVE) Urine Urobilinogen (0.2-1.0) mg/dL Ur Leukocyte Esterase (NEGATIVE) Influenza Type A RNA (NEGATIVE) Influenza Type B RNA (NEGATIVE) SARS-CoV-2 RNA (CONI) (NEGATIVE) 11/28/20 11/28/20 11/28/20 Range/Units 18:09 18:09 18:39 WBC (5.0-10.0) 10^3/uL RBC (4.6-6.2) 10^6/uL Hgb (14.0-18.0) g/dL Hct (40.0-54.0) % MCV (80-100) fL MCH (27.0-34.0) pg MCHC (33.0-35.0) g/dL Plt Count (150-450) 10^3/uL Neut % (Auto) (42.2-75.2) % Lymph % (Auto) (20.5-50.1) % [place] % (Auto) (2-8) % Eos % (Auto) (1.0-3.0) % Baso % (Auto) (0.0-1.0) % PT (9.0-12.0) SEC INR (0.9-1.2) D-Dimer, Quantitative (0-400) ng/mL Sodium (136-145) mmol/L Potassium (3.5-5.1) mmol/L Chloride (98-107) mmol/L Carbon Dioxide (21-32) mmol/L Anion Gap (7-13) mEq/L BUN (7-18) mg/dL Creatinine (0.70-1.30) mg/dL Est Cr Clr Drug Dosing mL/min Estimated GFR (MDRD) BUN/Creatinine Ratio (No establ ref range) Glucose (74-99) mg/dL POC Glucose (83-110) mg/dl Lactic Acid 1.0 (0.4-2.0) mmol/L Calcium (8.5-10.1) mg/dL Phosphorus 3.6 (2.6-4.7) mg/dL Magnesium 2.1 (1.8-2.4) mg/dL Total Bilirubin (0.2-1.0) mg/dL AST (15-37) U/L ALT (16-63) U/L Alkaline Phosphatase (46-116) U/L Troponin I (0.000-0.056) ng/mL C-Reactive Protein (0.0-0.9) mg/dL B-Natriuretic Peptide (0-100) pg/ml Total Protein (6.4-8.2) g/dL Albumin (3.4-5.0) g/dL Globulin Albumin/Globulin Ratio Urine Color (YELLOW) Urine Appearance (CLEAR) Urine pH (5.0-9.0) Ur Specific [place] (1.005-1.030) Urine Protein (NEGATIVE) Urine Glucose (UA) (NEGATIVE) Urine Ketones (NEGATIVE) Urine Occult Blood (NEGATIVE) Urine Nitrite (NEGATIVE) Urine Bilirubin (NEGATIVE) Urine Urobilinogen (0.2-1.0) mg/dL Ur Leukocyte Esterase (NEGATIVE) Influenza Type A RNA Negative (NEGATIVE) Influenza Type B RNA Negative (NEGATIVE) SARS-CoV-2 RNA (CONI) Negative (NEGATIVE) 11/29/20 11/29/20 11/29/20 Range/Units 00:57 06:00 07:39 WBC 7.6 (5.0-10.0) 10^3/uL RBC 4.97 (4.6-6.2) 10^6/uL Hgb 16.5 (14.0-18.0) g/dL Hct 48.8 (40.0-54.0) % MCV 98.2 (80-100) fL MCH 33.2 (27.0-34.0) pg MCHC 33.8 (33.0-35.0) g/dL Plt Count 239 (150-450) 10^3/uL Neut % (Auto) (42.2-75.2) % Lymph % (Auto) (20.5-50.1) % [place] % (Auto) (2-8) % Eos % (Auto) (1.0-3.0) % Baso % (Auto) (0.0-1.0) % PT (9.0-12.0) SEC INR (0.9-1.2) D-Dimer, Quantitative (0-400) ng/mL Sodium (136-145) mmol/L Potassium (3.5-5.1) mmol/L Chloride (98-107) mmol/L Carbon Dioxide (21-32) mmol/L Anion Gap (7-13) mEq/L BUN (7-18) mg/dL Creatinine (0.70-1.30) mg/dL Est Cr Clr Drug Dosing mL/min Estimated GFR (MDRD) BUN/Creatinine Ratio (No establ ref range) Glucose (74-99) mg/dL POC Glucose 146 H (83-110) mg/dl Lactic Acid (0.4-2.0) mmol/L Calcium (8.5-10.1) mg/dL Phosphorus (2.6-4.7) mg/dL Magnesium (1.8-2.4) mg/dL Total Bilirubin (0.2-1.0) mg/dL AST (15-37) U/L ALT (16-63) U/L Alkaline Phosphatase (46-116) U/L Troponin I (0.000-0.056) ng/mL C-Reactive Protein (0.0-0.9) mg/dL B-Natriuretic Peptide (0-100) pg/ml Total Protein (6.4-8.2) g/dL Albumin (3.4-5.0) g/dL Globulin Albumin/Globulin Ratio Urine Color Yellow (YELLOW) Urine Appearance Clear (CLEAR) Urine pH 5.5 (5.0-9.0) Ur Specific [place] 1.015 (1.005-1.030) Urine Protein Negative (NEGATIVE) Urine Glucose (UA) Negative (NEGATIVE) Urine Ketones Negative (NEGATIVE) Urine Occult Blood Negative (NEGATIVE) Urine Nitrite Negative (NEGATIVE) Urine Bilirubin Negative (NEGATIVE) Urine Urobilinogen 0.2 (0.2-1.0) mg/dL Ur Leukocyte Esterase Negative (NEGATIVE) Influenza Type A RNA (NEGATIVE) Influenza Type B RNA (NEGATIVE) SARS-CoV-2 RNA (CONI) (NEGATIVE) 11/29/20 Range/Units 11:54 WBC (5.0-10.0) 10^3/uL RBC (4.6-6.2) 10^6/uL Hgb (14.0-18.0) g/dL Hct (40.0-54.0) % MCV (80-100) fL MCH (27.0-34.0) pg MCHC (33.0-35.0) g/dL Plt Count (150-450) 10^3/uL Neut % (Auto) (42.2-75.2) % Lymph % (Auto) (20.5-50.1) % [place] % (Auto) (2-8) % Eos % (Auto) (1.0-3.0) % Baso % (Auto) (0.0-1.0) % PT (9.0-12.0) SEC INR (0.9-1.2) D-Dimer, Quantitative (0-400) ng/mL Sodium (136-145) mmol/L Potassium (3.5-5.1) mmol/L Chloride (98-107) mmol/L Carbon Dioxide (21-32) mmol/L Anion Gap (7-13) mEq/L BUN (7-18) mg/dL Creatinine (0.70-1.30) mg/dL Est Cr Clr Drug Dosing mL/min Estimated GFR (MDRD) BUN/Creatinine Ratio (No establ ref range) Glucose (74-99) mg/dL POC Glucose 206 H (83-110) mg/dl Lactic Acid (0.4-2.0) mmol/L Calcium (8.5-10.1) mg/dL Phosphorus (2.6-4.7) mg/dL Magnesium (1.8-2.4) mg/dL Total Bilirubin (0.2-1.0) mg/dL AST (15-37) U/L ALT (16-63) U/L Alkaline Phosphatase (46-116) U/L Troponin I (0.000-0.056) ng/mL C-Reactive Protein (0.0-0.9) mg/dL B-Natriuretic Peptide (0-100) pg/ml Total Protein (6.4-8.2) g/dL Albumin (3.4-5.0) g/dL Globulin Albumin/Globulin Ratio Urine Color (YELLOW) Urine Appearance (CLEAR) Urine pH (5.0-9.0) Ur Specific [place] (1.005-1.030) Urine Protein (NEGATIVE) Urine Glucose (UA) (NEGATIVE) Urine Ketones (NEGATIVE) Urine Occult Blood (NEGATIVE) Urine Nitrite (NEGATIVE) Urine Bilirubin (NEGATIVE) Urine Urobilinogen (0.2-1.0) mg/dL Ur Leukocyte Esterase (NEGATIVE) Influenza Type A RNA (NEGATIVE) Influenza Type B RNA (NEGATIVE) SARS-CoV-2 RNA (CONI) (NEGATIVE) Med Orders - Current: Current Medications Acetaminophen (Tylenol) 650 mg PO Q4H PRN PRN Reason: Pain (Mild 1-3)/fever Albuterol/Ipratropium (Duoneb 3.0-0.5 Mg/3 Ml) 3 ml NEB Q4H PRN PRN Reason: shortness of breath/wheezing Last Admin: 11/29/20 12:43 Dose: 3 ml Documented by: Aspirin (Aspirin) 324 mg PO DAILY [facility] Last Admin: 11/29/20 08:22 Dose: 324 mg Documented by: Azithromycin (Zithromax) 250 mg PO DAILY [facility] Stop: 12/02/20 09:01 Docusate Sodium (Colace) 100 mg PO BID PRN PRN Reason: Constipation Fluticasone Propionate (Flonase) 0 gm NASBOTH DAILY [facility] Last Admin: 11/29/20 08:26 Dose: 1 spray Documented by: Furosemide (Lasix) 40 mg IVPUSH Q12H [facility] Last Admin: 11/29/20 09:23 Dose: 40 mg Documented by: Guaifenesin (Robitussin) 100 mg PO Q6H PRN PRN Reason: Cough Last Admin: 11/28/20 22:35 Dose: 100 mg Documented by: Heparin Sodium (Porcine) (Heparin Sodium) 5,000 units SUBCUT Q12HR [facility] Last Admin: 11/29/20 08:25 Dose: 5,000 units Documented by: Magnesium Hydroxide (Milk Of Magnesia) 30 ml PO Q12H PRN PRN Reason: Constipation Metformin HCl (Glucophage) 500 mg PO DAILY@0800 [facility] Last Admin: 11/29/20 08:22 Dose: 500 mg Documented by: Methylprednisolone Sodium Succinate (Solu-Medrol) 40 mg IVPUSH Q8H [facility] Last Admin: 11/29/20 06:31 Dose: 40 mg Documented by: Metoprolol Succinate (Toprol Xl) 50 mg PO DAILY [facility] Last Admin: 11/29/20 08:22 Dose: 50 mg Documented by: Mometasone Furoate/Formoterol Fumar (Dulera 100-5 Mcg) 2 puff IH BID [facility] Last Admin: 11/29/20 08:28 Dose: 2 puff Documented by: Montelukast Sodium (Singulair) 10 mg PO DAILY [facility] Last Admin: 11/29/20 08:21 Dose: 10 mg Documented by: Ondansetron HCl (Zofran) 4 mg IVPUSH Q6H PRN PRN Reason: Nausea/Vomiting Simvastatin (Zocor) 20 mg PO BEDTIME [facility] Last Admin: 11/28/20 22:34 Dose: 20 mg Documented by: Discontinued Medications Azithromycin 500 mg/ Sodium (Chloride) 250 mls @ 250 mls/hr IV BEDTIME [facility] Stop: 11/28/20 22:44 Last Infusion: 11/29/20 00:11 Dose: Infused Documented by: Iopamidol (Isovue-370 (76%)) 100 ml IVPUSH ONETIME ONE Stop: 11/28/20 19:32 Last Admin: 11/28/20 19:43 Dose: 100 ml Documented by: Metformin HCl (Glucophage) 500 mg PO ACBREAKFAST [facility] - Exam Quality Assessment: Supplemental Oxygen, DVT Prophylaxis General: Alert, Oriented HEENT: Pupils Equal, Pupils Reactive, EOMI, Mucous Membr. Moist/[place]ck: Supple Lungs: Clear to Auscultation, Normal Respiratory Effort Cardiovascular: Regular Rate, Regular Rhythm GI/Abdominal Exam: Normal Bowel Sounds, Soft, Non-Tender, No Organomegaly, No Distention, No Abnormal Bruit, No Mass, Pelvis Stable (Male) Exam: No Hernia, Normal Inspection, Normal Prostate, Circumcised Back Exam: Normal Inspection, Full Range of Motion Extremities: Normal Inspection, Normal Range of Motion, Non-Tender, No Pedal Edema, Normal Capillary Refill Skin: Warm, Dry, Intact Wound/Incisions: Healing Well Neurological: No New Focal Deficit Psy/Mental Status: Alert, Normal Affect, Normal Mood - Patient Data Lab Results Last 24 hrs: Laboratory Results - last 24 hr 11/28/20 11/28/20 11/28/20 Range/Units 18:09 18:09 18:09 WBC 9.4 (5.0-10.0) 10^3/uL RBC 4.79 (4.6-6.2) 10^6/uL Hgb 15.9 (14.0-18.0) g/dL Hct 46.2 (40.0-54.0) % MCV 96.5 (80-100) fL MCH 33.2 (27.0-34.0) pg MCHC 34.4 (33.0-35.0) g/dL Plt Count 245 (150-450) 10^3/uL Neut % (Auto) 70.1 (42.2-75.2) % Lymph % (Auto) 17.0 L (20.5-50.1) % [place] % (Auto) 9.8 H (2-8) % Eos % (Auto) 2.7 (1.0-3.0) % Baso % (Auto) 0.4 (0.0-1.0) % PT 10.2 (9.0-12.0) SEC INR 1.1 (0.9-1.2) D-Dimer, Quantitative 455 H (0-400) ng/mL Sodium 137 (136-145) mmol/L Potassium 4.2 (3.5-5.1) mmol/L Chloride 100 (98-107) mmol/L Carbon Dioxide 27 (21-32) mmol/L Anion Gap 14.2 H (7-13) mEq/L BUN 14 (7-18) mg/dL Creatinine 1.02 (0.70-1.30) mg/dL Est Cr Clr Drug Dosing 66.60 mL/min Estimated GFR (MDRD) > 60 BUN/Creatinine Ratio 13.7 (No establ ref range) Glucose 99 (74-99) mg/dL POC Glucose (83-110) mg/dl Lactic Acid (0.4-2.0) mmol/L Calcium 8.8 (8.5-10.1) mg/dL Phosphorus (2.6-4.7) mg/dL Magnesium (1.8-2.4) mg/dL Total Bilirubin 1.3 H (0.2-1.0) mg/dL AST 20 (15-37) U/L ALT 28 (16-63) U/L Alkaline Phosphatase 79 (46-116) U/L Troponin I < 0.017 (0.000-0.056) ng/mL C-Reactive Protein 3.1 H (0.0-0.9) mg/dL B-Natriuretic Peptide 77 (0-100) pg/ml Total Protein 7.7 (6.4-8.2) g/dL Albumin 3.1 L (3.4-5.0) g/dL Globulin 4.6 Albumin/Globulin Ratio 0.67 Urine Color (YELLOW) Urine Appearance (CLEAR) Urine pH (5.0-9.0) Ur Specific [place] (1.005-1.030) Urine Protein (NEGATIVE) Urine Glucose (UA) (NEGATIVE) Urine Ketones (NEGATIVE) Urine Occult Blood (NEGATIVE) Urine Nitrite (NEGATIVE) Urine Bilirubin (NEGATIVE) Urine Urobilinogen (0.2-1.0) mg/dL Ur Leukocyte Esterase (NEGATIVE) Influenza Type A RNA (NEGATIVE) Influenza Type B RNA (NEGATIVE) SARS-CoV-2 RNA (CONI) (NEGATIVE) 11/28/20 11/28/20 11/28/20 Range/Units 18:09 18:09 18:39 WBC (5.0-10.0) 10^3/uL RBC (4.6-6.2) 10^6/uL Hgb (14.0-18.0) g/dL Hct (40.0-54.0) % MCV (80-100) fL MCH (27.0-34.0) pg MCHC (33.0-35.0) g/dL Plt Count (150-450) 10^3/uL Neut % (Auto) (42.2-75.2) % Lymph % (Auto) (20.5-50.1) % [place] % (Auto) (2-8) % Eos % (Auto) (1.0-3.0) % Baso % (Auto) (0.0-1.0) % PT (9.0-12.0) SEC INR (0.9-1.2) D-Dimer, Quantitative (0-400) ng/mL Sodium (136-145) mmol/L Potassium (3.5-5.1) mmol/L Chloride (98-107) mmol/L Carbon Dioxide (21-32) mmol/L Anion Gap (7-13) mEq/L BUN (7-18) mg/dL Creatinine (0.70-1.30) mg/dL Est Cr Clr Drug Dosing mL/min Estimated GFR (MDRD) BUN/Creatinine Ratio (No establ ref range) Glucose (74-99) mg/dL POC Glucose (83-110) mg/dl Lactic Acid 1.0 (0.4-2.0) mmol/L Calcium (8.5-10.1) mg/dL Phosphorus 3.6 (2.6-4.7) mg/dL Magnesium 2.1 (1.8-2.4) mg/dL Total Bilirubin (0.2-1.0) mg/dL AST (15-37) U/L ALT (16-63) U/L Alkaline Phosphatase (46-116) U/L Troponin I (0.000-0.056) ng/mL C-Reactive Protein (0.0-0.9) mg/dL B-Natriuretic Peptide (0-100) pg/ml Total Protein (6.4-8.2) g/dL Albumin (3.4-5.0) g/dL Globulin Albumin/Globulin Ratio Urine Color (YELLOW) Urine Appearance (CLEAR) Urine pH (5.0-9.0) Ur Specific [place] (1.005-1.030) Urine Protein (NEGATIVE) Urine Glucose (UA) (NEGATIVE) Urine Ketones (NEGATIVE) Urine Occult Blood (NEGATIVE) Urine Nitrite (NEGATIVE) Urine Bilirubin (NEGATIVE) Urine Urobilinogen (0.2-1.0) mg/dL Ur Leukocyte Esterase (NEGATIVE) Influenza Type A RNA Negative (NEGATIVE) Influenza Type B RNA Negative (NEGATIVE) SARS-CoV-2 RNA (CONI) Negative (NEGATIVE) 11/29/20 11/29/20 11/29/20 Range/Units 00:57 06:00 07:39 WBC 7.6 (5.0-10.0) 10^3/uL RBC 4.97 (4.6-6.2) 10^6/uL Hgb 16.5 (14.0-18.0) g/dL Hct 48.8 (40.0-54.0) % MCV 98.2 (80-100) fL MCH 33.2 (27.0-34.0) pg MCHC 33.8 (33.0-35.0) g/dL Plt Count 239 (150-450) 10^3/uL Neut % (Auto) (42.2-75.2) % Lymph % (Auto) (20.5-50.1) % [place] % (Auto) (2-8) % Eos % (Auto) (1.0-3.0) % Baso % (Auto) (0.0-1.0) % PT (9.0-12.0) SEC INR (0.9-1.2) D-Dimer, Quantitative (0-400) ng/mL Sodium (136-145) mmol/L Potassium (3.5-5.1) mmol/L Chloride (98-107) mmol/L Carbon Dioxide (21-32) mmol/L Anion Gap (7-13) mEq/L BUN (7-18) mg/dL Creatinine (0.70-1.30) mg/dL Est Cr Clr Drug Dosing mL/min Estimated GFR (MDRD) BUN/Creatinine Ratio (No establ ref range) Glucose (74-99) mg/dL POC Glucose 146 H (83-110) mg/dl Lactic Acid (0.4-2.0) mmol/L Calcium (8.5-10.1) mg/dL Phosphorus (2.6-4.7) mg/dL Magnesium (1.8-2.4) mg/dL Total Bilirubin (0.2-1.0) mg/dL AST (15-37) U/L ALT (16-63) U/L Alkaline Phosphatase (46-116) U/L Troponin I (0.000-0.056) ng/mL C-Reactive Protein (0.0-0.9) mg/dL B-Natriuretic Peptide (0-100) pg/ml Total Protein (6.4-8.2) g/dL Albumin (3.4-5.0) g/dL Globulin Albumin/Globulin Ratio Urine Color Yellow (YELLOW) Urine Appearance Clear (CLEAR) Urine pH 5.5 (5.0-9.0) Ur Specific [place] 1.015 (1.005-1.030) Urine Protein Negative (NEGATIVE) Urine Glucose (UA) Negative (NEGATIVE) Urine Ketones Negative (NEGATIVE) Urine Occult Blood Negative (NEGATIVE) Urine Nitrite Negative (NEGATIVE) Urine Bilirubin Negative (NEGATIVE) Urine Urobilinogen 0.2 (0.2-1.0) mg/dL Ur Leukocyte Esterase Negative (NEGATIVE) Influenza Type A RNA (NEGATIVE) Influenza Type B RNA (NEGATIVE) SARS-CoV-2 RNA (CONI) (NEGATIVE) 11/29/20 Range/Units 11:54 WBC (5.0-10.0) 10^3/uL RBC (4.6-6.2) 10^6/uL Hgb (14.0-18.0) g/dL Hct (40.0-54.0) % MCV (80-100) fL MCH (27.0-34.0) pg MCHC (33.0-35.0) g/dL Plt Count (150-450) 10^3/uL Neut % (Auto) (42.2-75.2) % Lymph % (Auto) (20.5-50.1) % [place] % (Auto) (2-8) % Eos % (Auto) (1.0-3.0) % Baso % (Auto) (0.0-1.0) % PT (9.0-12.0) SEC INR (0.9-1.2) D-Dimer, Quantitative (0-400) ng/mL Sodium (136-145) mmol/L Potassium (3.5-5.1) mmol/L Chloride (98-107) mmol/L Carbon Dioxide (21-32) mmol/L Anion Gap (7-13) mEq/L BUN (7-18) mg/dL Creatinine (0.70-1.30) mg/dL Est Cr Clr Drug Dosing mL/min Estimated GFR (MDRD) BUN/Creatinine Ratio (No establ ref range) Glucose (74-99) mg/dL POC Glucose 206 H (83-110) mg/dl Lactic Acid (0.4-2.0) mmol/L Calcium (8.5-10.1) mg/dL Phosphorus (2.6-4.7) mg/dL Magnesium (1.8-2.4) mg/dL Total Bilirubin (0.2-1.0) mg/dL AST (15-37) U/L ALT (16-63) U/L Alkaline Phosphatase (46-116) U/L Troponin I (0.000-0.056) ng/mL C-Reactive Protein (0.0-0.9) mg/dL B-Natriuretic Peptide (0-100) pg/ml Total Protein (6.4-8.2) g/dL Albumin (3.4-5.0) g/dL Globulin Albumin/Globulin Ratio Urine Color (YELLOW) Urine Appearance (CLEAR) Urine pH (5.0-9.0) Ur Specific [place] (1.005-1.030) Urine Protein (NEGATIVE) Urine Glucose (UA) (NEGATIVE) Urine Ketones (NEGATIVE) Urine Occult Blood (NEGATIVE) Urine Nitrite (NEGATIVE) Urine Bilirubin (NEGATIVE) Urine Urobilinogen (0.2-1.0) mg/dL Ur Leukocyte Esterase (NEGATIVE) Influenza Type A RNA (NEGATIVE) Influenza Type B RNA (NEGATIVE) SARS-CoV-2 RNA (CONI) (NEGATIVE) Result Diagrams: 11/29/20 06:00 11/28/20 18:09 Sepsis Event Note - Evaluation Sepsis Screening Result: No Definite Risk - Focused Exam Vital Signs: Vital Signs Temp Pulse Pulse Resp BP BP Pulse Ox 11/29/20 12:46 64 11/29/20 12:00 97.4 F 72 20 117/73 94 L 11/29/20 08:22 66 112/68 11/29/20 08:00 97.9 F 66 20 112/68 97 11/29/20 04:00 56 L 16 92 L Pulse Ox 11/29/20 12:46 92 L 11/29/20 12:00 11/29/20 08:22 11/29/20 08:00 11/29/20 04:00 - Problem List & Annotations (1) Acute CHF SNOMED Code(s): 12633642 Code(s): I50.9 - HEART FAILURE, UNSPECIFIED Status: Acute Current Visit: Yes (2) Acute respiratory failure with hypoxia SNOMED Code(s): 27009631, 474932464 Code(s): J96.01 - ACUTE RESPIRATORY FAILURE WITH HYPOXIA Status: Acute Current Visit: Yes (3) Acute respiratory disease SNOMED Code(s): 776780070 Code(s): J06.9 - ACUTE UPPER RESPIRATORY INFECTION, UNSPECIFIED Status: Acute Current Visit: Yes - Problem List Review Problem List Initiated/Reviewed/Updated: Yes - My Orders Last 24 Hours: My Active Orders 11/28/20 21:32 Ambulate [RC] ASDIRECTED Blood Glucose Check, Bedside [RC] WITHMEALSANDBED Oxygen Therapy [RC] PRN VTE/DVT Education [RC] PER UNIT ROUTINE Vital Signs [RC] Q4HR PT Evaluation and Treatment [CONS] Routine Acetaminophen [TylenoL] 650 mg PO Q4H PRN Albuterol/Ipratropium [DuoNeb 3.0-0.5 MG/3 ML] 3 ml NEB Q4H PRN Docusate Sodium [Colace] 100 mg PO BID PRN Magnesium Hydroxide [Milk of Magnesia] 30 ml PO Q12H PRN Ondansetron [Zofran] 4 mg IVPUSH Q6H PRN Resuscitation Status Routine 11/28/20 21:33 Intake and Output [RC] 06,14,22 Pulse Oximetry [RC] PRN 11/28/20 21:35 RT Aerosol Therapy [RC] ASDIRECTED 11/28/20 21:45 Furosemide [Lasix] 40 mg IVPUSH Q12H methylPREDNISolone Sod Succ [Solu-MEDROL] 40 mg IVPUSH Q8H 11/28/20 21:57 guaiFENesin [Robitussin] 100 mg PO Q6H PRN 11/28/20 22:30 Simvastatin [Zocor] 20 mg PO BEDTIME 11/29/20 08:00 metFORMIN [Glucophage] 500 mg PO DAILY@0800 11/29/20 09:00 Aspirin 324 mg PO DAILY Fluticasone Propionate [Flonase] 0 gm NASBOTH DAILY Heparin Sodium 5,000 units SUBCUT Q12HR Metoprolol Succinate [Toprol XL] 50 mg PO DAILY Mometasone/Formoterol [Dulera 100-5 MCG] 2 puff IH BID Montelukast [Singulair] 10 mg PO DAILY 11/29/20 09:21 Echo Comp wo Cont [US] Routine 11/29/20 10:46 6 Minute Walk Test [OM.PC] Routine 11/29/20 10:58 Ready for Discharge [RC] PER UNIT ROUTINE 11/29/20 18:00 Azithromycin [Zithromax] 250 mg PO DAILY - Plan Plan:: #Acute respiratory failure with hypoxia Differentials include but to limited to acute respiratory airway disease, acute CHF Patient has no formal diagnosis of COPD. He has appointment with pulmonology coming up for lung function test Duo-Nebs q4h Solumedrol Azithromycin IV lasix Echo Daily weight Fluid restriction Continue supplemental oxygen and wean off as able Continue supplemental oxygen and wean off as able #Hypertension BP within acceptable limits Continue home dose of metoprolol Monitor BP closely #Type 2 diabetes Fairly controlled Patient on Metformin. Continue SSI for optimal glycemic control Accu-Cheks Hypoglycemic protocol #Hyperlipidemia Continue home statin #Diet Consistent carb diet #CODE STATUS Discussion with patient and he prefers to remain full code at this time.
[2020-11-29] MEDS: Azithromycin 250 MG Tab PO SCH (17:59)
[2020-11-29] MEDS: Simvastatin 10 MG Tab PO SCH (20:49)
[2020-11-29] MEDS ORDERED: Sodium Chloride 0.9% 10 ML Syringe FLUSH PRN (20:54)
[2020-11-30] MEDS: methylPREDNISolone Sodium Succinate 40 MG/1 ML SDV IVPUSH SCH ×2 (05:23→14:12)
[2020-11-30] MEDS: Montelukast 10 MG Tab PO SCH (08:54)
[2020-11-30] MEDS: Azithromycin 250 MG Tab PO SCH (08:54)
[2020-11-30] MEDS: Metoprolol Succinate 50 MG Tab.ER PO SCH (08:54)
[2020-11-30] MEDS: Aspirin 81 MG Tab.Chew PO SCH (08:54)
[2020-11-30] MEDS: Fluticasone Propionate Nasal Spray 16 GM Bottle NASBOTH SCH (08:56)
[2020-11-30] MEDS: Formoterol/Mometasone 100-5 MCG 8.8 GM Inhaler IH SCH (08:57)
[2020-11-30] MEDS: Heparin Sodium 5,000 Units/ML Vial SUBCUT SCH (08:58)
[2020-11-30] MEDS: Furosemide 40 MG/4 ML VIAL IVPUSH SCH (08:59)
[2020-12-01] MEDS ORDERED: metFORMIN 500 MG Tab PO SCH (08:00)
== END 2020-11-30 14:45 | disposition home or self-care (01) ==
LOC: DL.ED 17:15 → DL.MS 20:48
PROVIDERS: ADMIT Student in an Organized Health Care Education/Training Program; ATTEND Student in an Organized Health Care Education/Training Program
DX: J96.01 Acute respiratory failure with hypoxia (principal); J06.9 Acute upper respiratory infection, unspecified; J84.89 Other specified interstitial pulmonary diseases; R59.0 Localized enlarged lymph nodes; I11.0 Hypertensive heart disease with heart failure; I50.9 Heart failure, unspecified; E11.9 Type 2 diabetes mellitus without complications; E78.00 Pure hypercholesterolemia, unspecified; Z20.822 Contact with and (suspected) exposure to COVID-19; Z79.82 Long term (current) use of aspirin; Z79.84 Long term (current) use of oral hypoglycemic drugs; Z79.899 Other long term (current) drug therapy
CPT/HCPCS: 0240U; 36415; 71045; 71260; 80048; 80053; 81003; 82962; 83605; 83735; 83880; 84100; 84484; 85025; 85027; 85379; 85610; 86140; 87040; 93005; 93306; 94618; 94640; 96365; 96372; 96375; 96376; 97162; 99217; 99220; 99225; 99284; 99285; A9270; G0378; J0456; J1644; J1940; J2920; J7050; Q9967; J7620-GY

== ENCOUNTER 2021-02-23 10:46 | Emergency (ER) | payer MEDICARE ==
[2021-02-23 11:53] LABS: ANION GAP 11.2 mEq/L (7-13); CHLORIDE,CL 102 mmol/L (98-107); SODIUM,NA 141 mmol/L (136-145)
--- NOTE | 2021-02-23 12:06 | CR ---
PROCEDURE INFORMATION: Exam: XR Chest Exam date and time: 02/23/2021 11:33 AM Age: 75 years old Clinical indication: Shortness of breath; Additional info: Recent right lung biopsy; Increased SOB since TECHNIQUE: Imaging protocol: XR of the chest. Views: 2 views. COMPARISON: CT Chest w Cont 11/28/2020 8:06 PM FINDINGS: Lungs: Chronic appearing interstitial changes are present within the lung parenchyma with probable pulmonary fibrosis. Pleural spaces: There is a small pneumothorax on the right. This occupies approximately 20% volume right hemithorax. Heart/Mediastinum: Heart size is mildly prominent. Bones/joints: Unremarkable. IMPRESSION: 1. 20% volume pneumothorax on the right. 2. Chronic appearing interstitial change suggestive of chronic interstitial lung disease. This could represent pulmonary fibrosis/UIP.
--- NOTE | 2021-02-23 12:13 | EDM.PDOC ---
ED HPI GENERAL MEDICAL PROBLEM - General Chief Complaint: General Stated Complaint: FLUID BUILDUP ON BIOPSY / LUNG Time Seen by Provider: 02/23/21 11:10 Source of Information: Reports: Patient, RN, RN Notes Reviewed History Limitations: Reports: No Limitations - History of Present Illness INITIAL COMMENTS - FREE TEXT/NARRATIVE: Prashant is a 75 y/o male with a history of hypertension, hyperlipidemia, DM II, and "unknown scarring lung disease" on 6L of home O2 who presents to the ED via personal vehicle with for complaints of right lung discomfort. The patient reports he is three weeks s/p right lung biopsy via Dr. Burciaga, CT surgeon at [facility] in [place]. He states his healing processes has been unremarkable until today when he felt "..fluid bubbling" in his right, lateroposterior chest wall. He denies recent illness, recent injury, fever, shaking chills, chest pain, palpitations, or worsening shortness of breath. He has not required any increase in his baseline oxygen needs or PRN albuterol nebulizers. The patient reports he has a follow up with Dr. Burciaga "..sometime in March." Right Middle Posterior Back Pain Score (Numeric/FACES): 3 - Related Data Allergies Allergy/AdvReac Type Severity Reaction Status Date / Time No Known Allergies Allergy Verified 02/23/21 11:08 Home Meds: Home Meds Aspirin 325 mg PO DAILY 11/28/20 [History] Budesonide/Formoterol Fumarate [Symbicort 80-4.5 MCG] 2 puff INH BID 11/28/20 [History] Fluticasone Propionate 1 spray NASBOTH DAILY 11/28/20 [History] Metoprolol Succinate [Toprol XL 50mg] 50 mg PO DAILY 11/28/20 [History] Montelukast [Singulair] 10 mg PO DAILY 11/28/20 [History] Simvastatin 20 mg PO BEDTIME 11/28/20 [History] metFORMIN HCl [Metformin HCl] 500 mg PO ACBREAKFAST 11/28/20 [History] Azithromycin 250 mg PO DAILY #4 tablet 11/29/20 [Rx] Furosemide [Lasix] 40 mg PO Q12H 1 Days #60 tablet 11/29/20 [Rx] guaiFENesin [Robitussin] 100 mg PO Q6H PRN #1 cup 11/29/20 [Rx] predniSONE [Prednisone] 20 mg PO DAILY #5 tablet 11/29/20 [Rx] Past Medical History Cardiovascular History: Reports: High Cholesterol, Hypertension Respiratory History: Reports: SOB Endocrine/Metabolic History: Reports: Diabetes, Type II, Other (See Below) Other Endocrine/Metabolic History: Diabetes Social & Family History - Tobacco Use Tobacco Use Status *Q: Never Tobacco User - Caffeine Use Caffeine Use: Reports: Coffee - Recreational Drug Use Recreational Drug Use: No ED ROS GENERAL - Review of Systems Review Of Systems: Comprehensive ROS is negative, except as noted in HPI. ED EXAM, GENERAL - Physical Exam Exam: See Below Exam Limited By: No Limitations General Appearance: Alert, No Apparent Distress Eye Exam: Bilateral Eye: EOMI, Normal Inspection, PERRL (3mm) Throat/Mouth: Normal Inspection, Normal Lips, Normal Teeth, Normal Gums, Normal Oropharynx, Normal Voice, No Airway Compromise Head: Atraumatic, Normocephalic Neck: Normal Inspection, Supple, Non-Tender. No: Lymphadenopathy (L), Lymphadenopathy (R) Respiratory/Chest: Lungs Clear, Normal Breath Sounds, Chest Non-Tender, Decreased Breath Sounds, Accessory Muscle Use, Other (Crepitus to right, lower lateroposterior thorax; On 6L of O2 via NC at baseline). No: Crackles, Rales, Rhonchi, Wheezing, Stridor, Pleural Rub Cardiovascular: Normal Peripheral Pulses, Regular Rate, Rhythm, No Edema, No Gallop, No JVD, No Murmur, No Rub Peripheral Pulses: 2+: Radial (L), Radial (R), Dorsalis Pedis (L), Dorsalis Pedis (R) GI/Abdominal: Normal Bowel Sounds, Soft, Non-Tender, No Distention, No Mass, Pelvis Stable (Male) Exam: Deferred Rectal (Males) Exam: Deferred Back Exam: Full Range of Motion, Other (Crepitus to right lower, lateroposterior thorax) Extremities: Normal Inspection, Normal Range of Motion, Non-Tender, No Pedal Edema, Normal Capillary Refill Neurological: Alert, Oriented, CN II-XII Intact, Normal Cognition, Normal Gait, Normal Reflexes, No Motor/Sensory Deficits Psychiatric: Normal Affect, Normal Mood Skin Exam: Warm, Dry, Intact, Normal Color, No Rash. No: Diaphoretic, Ecchymosis, Erythema, Mottled, Pallor, Petechiae Lymphatic: No Adenopathy #1 Interpretation EKG Date: 02/23/21 Time: 11:37 Rhythm: NSR Rate (Beats/Min): 60 [place]: LAD-Left [place] Deviation P-Wave: Present QRS: RBBB ST-T: Normal QT: Normal OR/PQ Interval: 0.156 Comparison: No Change EKG Interpretation Comments: NSR; LAD; RBBB; LAFB; No evidence of acute myocardial ischemia Course - Vital Signs Last Recorded V/S: Last Vital Signs Temp 98.3 F 02/23/21 11:01 Pulse 64 02/23/21 12:35 Resp 21 H 02/23/21 12:35 BP 129/78 02/23/21 12:35 Pulse Ox 95 02/23/21 12:35 - Orders/Labs/Meds Labs: Laboratory Tests 02/23/21 02/23/21 02/23/21 Range/Units 11:27 11:27 11:27 WBC 10.0 (5.0-10.0) 10^3/uL RBC 4.29 L (4.6-6.2) 10^6/uL Hgb 13.8 L D (14.0-18.0) g/dL Hct 41.7 (40.0-54.0) % MCV 97.2 (80-100) fL MCH 32.2 (27.0-34.0) pg MCHC 33.1 (33.0-35.0) g/dL Plt Count 266 (150-450) 10^3/uL Neut % (Auto) 70.7 (42.2-75.2) % Lymph % (Auto) 15.2 L (20.5-50.1) % [place] % (Auto) 8.5 H (2-8) % Eos % (Auto) 5.3 H (1.0-3.0) % Baso % (Auto) 0.3 (0.0-1.0) % Sodium 141 (136-145) mmol/L Potassium 4.2 (3.5-5.1) mmol/L Chloride 102 (98-107) mmol/L Carbon Dioxide 32 (21-32) mmol/L Anion Gap 11.2 (7-13) mEq/L BUN 16 (7-18) mg/dL Creatinine 0.93 (0.70-1.30) mg/dL Est Cr Clr Drug Dosing 75.34 mL/min Estimated GFR (MDRD) > 60 BUN/Creatinine Ratio 17.2 (No establ ref range) Glucose 131 H (70-99) mg/dL Lactic Acid 0.8 (0.4-2.0) mmol/L Calcium 8.7 (8.5-10.1) mg/dL Total Bilirubin 1.2 H (0.2-1.0) mg/dL AST 19 (15-37) U/L ALT 25 (16-63) U/L Alkaline Phosphatase 80 (46-116) U/L Troponin I < 0.017 (0.000-0.056) ng/mL C-Reactive Protein 3.5 H (0.0-0.9) mg/dL B-Natriuretic Peptide 101 H (0-100) pg/ml Total Protein 7.6 (6.4-8.2) g/dL Albumin 3.0 L (3.4-5.0) g/dL Globulin 4.6 Albumin/Globulin Ratio 0.65 - Radiology Interpretation Free Text/Narrative:: [facility] Final Radiology Report Call: [phone] assistance Online chat: [email or web address] Name: PRASHANT PRAKASH Age: 75Years M Date: 02/23/2021 SSN: -- : [id number] Study: CR CHEST 2V Requesting Physician: Jacqueline Bellamy Images: 2 Addl Studies: Provided Clinical History: Recent Right lung biopsy; Increased SOB since Contrast: Contrast Medium: Contrast Amount: Contrast Method: Page 1 of 2 PROCEDURE INFORMATION: Exam: XR Chest Exam date and time: 02/23/2021 11:33 AM Age: 75 years old Clinical indication: Shortness of breath; Additional info: Recent right lung biopsy; Increased SOB since TECHNIQUE: Imaging protocol: XR of the chest. Views: 2 views. COMPARISON: CT Chest w Cont 11/28/2020 8:06 PM FINDINGS: Lungs: Chronic appearing interstitial changes are present within the lung parenchyma with probable pulmonary fibrosis. Pleural spaces: There is a small pneumothorax on the right. This occupies approximately 20% volume right hemithorax. Heart/Mediastinum: Heart size is mildly prominent. Bones/joints: Unremarkable. IMPRESSION: 1. 20% volume pneumothorax on the right. 2. Chronic appearing interstitial change suggestive of chronic interstitial lung disease. This could represent pulmonary fibrosis/UIP. Thank you for allowing us to participate in the care of your patient. Dictated and Authenticated by: Duong Angelo MD 02/23/2021 12:06 PM Central Time ([place] & [place]) - Re-Assessments/Exams Free Text/Narrative Re-Assessment/Exam: 02/23/21 CXR obtained. EKG reveals NSR with no evidence of acute myocardial ischemia. Troponin WNL. BNP slightly elevated at 101. CRP elevated at 3.5 Hgb mildly decreased at 13.8, Hct normal. Kidney function, liver function, and electrolytes appropriate via CMP. CXR reveals moderate right pneumothorax. Case discussed with patients CT surgeon at [facility] in [place], Dr. Burciaga. Dr. Burciaga states given the fact that patient is not requiring an increase in O2 and is not experiencing SOB or CP, he will see him in clinic tomorrow morning for reevaluation; he is to have a CXR prior to this visit. Findings of examination, lab work, and imaging reviewed with patient. Plan for follow up with Dr. Burciaga for tomorrow morning discussed. Red flag signs and symptoms which would warrant immediate reevaluation reviewed. Patient verbalized understanding and agreement with the plan of care. Departure - Departure Time of Disposition: 12:32 Disposition: Home, Self-Care 01 Condition: Fair Clinical Impression: Pneumothorax of right lung after biopsy, On home oxygen therapy - Discharge Information *PRESCRIPTION DRUG MONITORING PROGRAM REVIEWED*: Not Applicable *COPY OF PRESCRIPTION DRUG MONITORING REPORT IN PATIENT JUANY: Not Applicable Instructions: Pneumothorax Referrals: Steve Rivera MD [Primary Care Provider] - Forms: ED Department Discharge Additional Instructions: 1.) Schedule appointment with Dr. Burciaga for tomorrow morning, his office number is [phone]. He wants you to have an X-ray of your chest prior to this appointment, so make sure to schedule that as well. 2.) Return to the emergency department with any worsening shortness of breath, chest pain, chest pressure, or increase in your oxygen/nebulizer needs in the next 24 hours. 3.) Avoid strenuous activity. Sepsis Event Note (ED) - Evaluation Sepsis Screening Result: No Definite Risk
== END 2021-02-23 12:53 | disposition home or self-care (01) ==
LOC: DL.ED 10:46
DX: J93.9 Pneumothorax, unspecified (principal); E78.00 Pure hypercholesterolemia, unspecified; I10 Essential (primary) hypertension; E11.9 Type 2 diabetes mellitus without complications; Z79.82 Long term (current) use of aspirin; Z79.84 Long term (current) use of oral hypoglycemic drugs; Z79.899 Other long term (current) drug therapy; Z99.81 Dependence on supplemental oxygen
CPT/HCPCS: 36415; 71046; 80053; 83605; 83880; 84484; 85025; 86140; 93005; 93010; 99284; 99284-25

== ENCOUNTER 2023-12-08 09:48 | Emergency (ER) | payer MEDICARE, BC ==
[2023-12-08] MEDS: Oxymetazoline 0.05% Nasal Spray 30 ML Bottle NAS ONE (10:17)
[2023-12-08 10:40] LABS: BASOPHILS PERCENT AUTO 0.3 % (0.0-1.0); EOSINOPHILS PERCENT AUTO 1.8 % (1.0-3.0); HEMATOCRIT 38.5 % (40.0-54.0); HEMOGLOBIN 12.4 g/dL (14.0-18.0); LYMPHOCYTES PERCENT AUTO 19.5 % (20.5-50.1); MEAN CORPUSCULAR HEMOGLOBIN 31.3 pg (27.0-34.0); MEAN CORPUSCULAR HGB CONC 32.2 g/dL (33.0-35.0); MEAN CORPUSCULAR VOLUME 97.2 fL (80-100); NEUTROPHILS PERCENT AUTO 69.4 % (42.2-75.2); PLATELET COUNT,PLT 235 10^3/uL (150-450); RED BLOOD CELL COUNT 3.96 10^6/uL (4.6-6.2); WHITE BLOOD CELL COUNT,WBC 9.4 10^3/uL (5.0-10.0)
[2023-12-08 11:00] LABS: ALANINE AMINOTRANSFERASE,ALT 21 U/L (16-63); ALBUMIN 3.4 g/dL (3.4-5.0); ALKALINE PHOSPHATASE 66 U/L (46-116); ANION GAP 12.3 mEq/L (7-13); ASPARTATE AMNIOTRANSFERASE,AST 12 U/L (15-37); BILIRUBIN TOTAL 0.6 mg/dL (0.2-1.0); BLOOD UREA NITROGEN,BUN 45 mg/dL (7-18); BUN/CREATININE RATIO 20.1 (No establ ref range); CALCIUM 8.4 mg/dL (8.5-10.1); CARBON DIOXIDE,CO2 29 mmol/L (21-32); CHLORIDE,CL 105 mmol/L (98-107); CREATININE 2.24 mg/dL (0.70-1.30); EST CRCL DRUG DOSING (CG) 29.88 mL/min; GLUCOSE RANDOM 117 mg/dL (70-99); INR 0.9 (0.9-1.2); POTASSIUM,K 4.3 mmol/L (3.5-5.1); PROTEIN TOTAL,TP 6.7 g/dL (6.4-8.2); PROTHROMBIN TIME 9.1 SEC (9.0-12.0); PTT,PARTIAL THROMBOPLSTIN TIME 23.8 SEC (22.0-34.0); SODIUM,NA 142 mmol/L (136-145)
[2023-12-08 11:11] LABS: ESTIMATED GFR 30 mL/min (>=60); ETHANOL BLOOD MEDICAL < 3 mg/dL (0)
== END 2023-12-08 11:20 | disposition home or self-care (01) ==
LOC: DL.ED 09:48
DX: R04.0 Epistaxis (principal); I10 Essential (primary) hypertension; K21.9 Gastro-esophageal reflux disease without esophagitis; E78.00 Pure hypercholesterolemia, unspecified; E11.9 Type 2 diabetes mellitus without complications; Z79.82 Long term (current) use of aspirin; Z79.899 Other long term (current) drug therapy
CPT/HCPCS: 30901; 36415; 80053; 80307; 85025; 85610; 85730; 99283; A9270-GY

== ENCOUNTER 2023-12-15 17:56 | Emergency (ER) | payer MEDICARE, BC ==
[2023-12-15] MEDS ORDERED: Oxymetazoline 0.05% Nasal Spray 30 ML Bottle ONE (19:21)
== END 2023-12-15 19:52 | disposition home or self-care (01) ==
LOC: DL.ED 17:56
DX: R04.0 Epistaxis (principal)
CPT/HCPCS: 99283; A9270-GY

== ENCOUNTER 2024-02-16 10:13 | Day surgery (SDC) | payer MEDICARE, BC ==
[2024-02-16] MEDS ORDERED: Dexamethasone 4 MG/ML SDV IV ONE (10:14)
[2024-02-16] MEDS ORDERED: Sodium Chloride 0.9% 10 ML Syringe IV ONE (10:14)
[2024-02-16] MEDS ORDERED: Midazolam 1 MG/ML 2 ML SDV IV ONE (10:14)
[2024-02-16] MEDS ORDERED: Acetaminophen/Codeine 300-30 MG Tab PO PRN (10:15)
[2024-02-16] MEDS ORDERED: Ondansetron 4 MG/2 ML SDV IVPUSH PRN (10:15)
[2024-02-16] MEDS ORDERED: Acetaminophen 325 MG Tab PO PRN (10:15)
[2024-02-16] MEDS: Phenylephrine 10% Ophth Soln 5 ML Bot EYELF ONE (10:53)
[2024-02-16] MEDS: Tropicamide 1% Ophth Soln 15 ML Bottle EYELF ONE (10:53)
[2024-02-16] MEDS: Sodium Chloride 0.9% 10 ML Syringe FLUSH PRN (10:53)
[2024-02-16] MEDS: Moxifloxacin 0.5% Ophth Soln 3 ML Bottle EYELF ONE (10:53)
[2024-02-16] MEDS: Proparacaine 0.5% Ophth Soln 15 ML Bottle EYELF ONE ×2 (10:53→11:35)
[2024-02-16] MEDS: Timolol Maleate 0.5% Ophth Soln 5 ML Bottle EYELF ONE (10:53)
[2024-02-16] MEDS: Cataract Ophth Solution EYELF ONE (10:54)
[2024-02-16] MEDS: Povidone-Iodine 5% Sterile Ophth Soln 30 ML Bottle EYELF ONE ×2 (10:54→11:35)
[2024-02-16] MEDS: Lidocaine 1% 30 ML SDV ONE (11:35)
[2024-02-16] MEDS: Diclofenac Sodium 0.1% Ophth Soln 5 ML Bottle EYELF ONE (11:35)
[2024-02-16] MEDS: Apraclonidine 0.5% Ophth Soln 5 ML Bot EYELF ONE (11:35)
[2024-02-16] MEDS: Dexamethasone/Neomycin/Polymyxin B Ophth Oint 3.5 GM Tube EYELF ONE (11:35)
[2024-02-16] MEDS: Chondroitin Sulfate/Hyaluronate Sodium Ophth Inj 0.5 ML Syringe IOCULAR ONE (11:36)
[2024-02-16] MEDS: Vancomycin 500 MG SDV EYELF ONE (11:36)
[2024-02-16] MEDS: Acetylcholine 20 MG/2 ML Intraocular Inj Kit EYELF ONE (11:36)
== END 2024-02-16 11:45 | disposition home or self-care (01) ==
LOC: DL.SDS 10:13
PROVIDERS: ATTEND Ophthalmology
DX: H40.1121 Primary open-angle glaucoma, left eye, mild stage (principal); E11.36 Type 2 diabetes mellitus with diabetic cataract; H26.8 Other specified cataract; E11.22 Type 2 diabetes mellitus with diabetic chronic kidney disease; I12.9 Hypertensive chronic kidney disease with stage 1 through stage 4 chronic kidney disease, or unspecified chronic kidney disease; N18.4 Chronic kidney disease, stage 4 (severe); E78.5 Hyperlipidemia, unspecified; E66.9 Obesity, unspecified; Z68.33 Body mass index [BMI] 33.0-33.9, adult; I27.23 Pulmonary hypertension due to lung diseases and hypoxia; J84.9 Interstitial pulmonary disease, unspecified; Z79.84 Long term (current) use of oral hypoglycemic drugs; Z79.899 Other long term (current) drug therapy
CPT/HCPCS: A9270-GY; C1783; J1100; J2250; J3370; J3490

== ENCOUNTER 2024-07-21 13:54 | Emergency (ER) | payer MEDICARE, BC ==
[2024-07-21 15:15] LABS: A/G RATIO 1.2; ALBUMIN 3.6 g/dL (3.4-5.0); ANION GAP 12.1 mEq/L (7-13); BASOPHILS PERCENT AUTO 0.2 % (0.0-1.0); BILIRUBIN TOTAL 0.9 mg/dL (0.2-1.0); CALCIUM 8.7 mg/dL (8.5-10.1); CREATININE 2.58 mg/dL (0.70-1.30); EOSINOPHILS PERCENT AUTO 0.9 % (1.0-3.0); EST CRCL DRUG DOSING (CG) 25.54 mL/min; HEMATOCRIT 35.6 % (40.0-54.0); HEMOGLOBIN 11.6 g/dL (14.0-18.0); LYMPHOCYTES PERCENT AUTO 20.9 % (20.5-50.1); MAGNESIUM 1.8 mg/dL (1.8-2.4); MEAN CORPUSCULAR HEMOGLOBIN 31.9 pg (27.0-34.0); MEAN CORPUSCULAR HGB CONC 32.6 g/dL (33.0-35.0); MEAN CORPUSCULAR VOLUME 97.8 fL (80-100); MONOCYTES PERCENT AUTO 8.1 % (2-8); NEUTROPHILS PERCENT AUTO 69.9 % (42.2-75.2); PLATELET COUNT,PLT 185 10^3/uL (150-450); POTASSIUM,K 5.1 mmol/L (3.5-5.1); PROTEIN TOTAL,TP 6.6 g/dL (6.4-8.2); RED BLOOD CELL COUNT 3.64 10^6/uL (4.6-6.2); TSH ULTRASENSITIVE 1.12 uIU/mL (0.36-3.74); WHITE BLOOD CELL COUNT,WBC 8.6 10^3/uL (5.0-10.0)
== END 2024-07-21 16:46 | disposition home or self-care (01) ==
LOC: DL.ED 13:54
DX: R00.1 Bradycardia, unspecified (principal); E78.00 Pure hypercholesterolemia, unspecified; I11.0 Hypertensive heart disease with heart failure; I50.9 Heart failure, unspecified; K21.9 Gastro-esophageal reflux disease without esophagitis; E11.9 Type 2 diabetes mellitus without complications; Z86.16 Personal history of COVID-19; Z79.899 Other long term (current) drug therapy
CPT/HCPCS: 36415; 71045; 80053; 83735; 84443; 84484; 85025; 93005; 99284